=== PATIENT | female | born 1945 | race African-American/Black ===

== ENCOUNTER → 2017-02-13 | Outpatient (CLI) | payer MEDICARE, OTHER ==
[~2017-02-13] MED LIST: IOHEXOL-300 100 ML BOTTLE ONE; LEVO75TA7 PO; NITR0.4T SL; SODIUM CHLORIDE 0.9% 10ML VIAL ONE
== END | disposition home or self-care (01) ==
LOC: CT 08:44
PROVIDERS: ATTEND Internal Medicine Nephrology
DX: R91.8 Other nonspecific abnormal finding of lung field (principal); M47.814 Spondylosis without myelopathy or radiculopathy, thoracic region
CPT/HCPCS: 71260; A4216; Q9967

== ENCOUNTER 2017-05-19 21:56 | Emergency (ER) | payer MEDICARE, OTHER ==
[~2017-05-19] VITALS: Ht 165.1 cm; Wt 90.0 kg
[~2017-05-19 21:56] MED LIST changes: -IOHEXOL-300 100 ML BOTTLE ONE; -SODIUM CHLORIDE 0.9% 10ML VIAL ONE
[2017-05-19 23:44] LABS: BASOPHILS % 0.2 % (0.0-2.0); EOSINOPHILS % 1.6 % (0.0-5.0); HEMATOCRIT. 32.2 % (36.0-48.0); HEMOGLOBIN. 10.9 g/dL (12.0-16.0); LYMPHOCYTES % 18.1 % (20.0-50.0); MEAN CORPUSCULAR HEMOGLOBIN 31.7 pg (28.0-32.0); MEAN CORPUSCULAR VOLUME 93.3 fL (81.0-99.0); MEAN PLATELET VOLUME 8.5 fl (7.4-10.4); MONOCYTES % 5.9 % (2.0-8.0); NEUTROPHILS % 74.2 % (40.0-76.0); PLATELET 157 x1000/uL (130-400); RED BLOOD CELL COUNT 3.45 mill/uL (4.2-5.4)
[2017-05-19 23:52] LABS: CHLORIDE 106 mEq/L (98-107)
[2017-05-20] LABS: CARBON DIOXIDE 28 mEq/L (21-32); ETHANOL BLOOD < 10 mg/dL
[2017-05-20 00:33] LABS: CLARITY URINE TURBID (CLEAR); COLOR URINE YELLOW (YELLOW); GLUCOSE URINE NEGATIVE (NEGATIVE); KETONES URINE NEGATIVE (NEGATIVE); LEUKOCYTE ESTERASE URINE 3+ (NEGATIVE); NITRITE URINE NEGATIVE (NEGATIVE); OCCULT BLOOD URINE 2+ (NEGATIVE); PH URINE 6.5 (4.5-8.0); PROTEIN URINE 1+ (NEGATIVE); SPECIFIC GRAVITY URINE 1.009 (1.005-1.030); UROBILINOGEN URINE 0.2 E.U./dL (0.2-1.0)
[2017-05-20 01:45] LABS: *AMPHETAMINES SCREEN URINE NEGATIVE (NEGATIVE); *BARBITURATES SCREEN URINE NEGATIVE (NEGATIVE); *BENZODIAZEPINES SCREEN URINE PRESUMTIVE POSITIVE (NEGATIVE); *COCAINE SCREEN URINE NEGATIVE (NEGATIVE); CANNABINOID URINE SCREEN NEGATIVE (NEGATIVE); METHADONE URINE SCREEN NEGATIVE (NEGATIVE); OPIATES URINE SCREEN NEGATIVE (NEGATIVE); PHENCYCLIDINE URINE SCREEN NEGATIVE (NEGATIVE)
[2017-05-20] MEDS ORDERED: DIAZEPAM 5 MG TABLET PO ONE (01:45)
[2017-05-20] MEDS ORDERED: CEPHALEXIN 500MG CAPSULE PO ONE (01:45)
[2017-05-20 02:47] VITALS: BP 125/63
== END 2017-05-20 02:49 | disposition home or self-care (01) ==
LOC: ER 22:25
DX: N39.0 Urinary tract infection, site not specified (principal); E11.9 Type 2 diabetes mellitus without complications; I25.2 Old myocardial infarction; Z98.890 Other specified postprocedural states
CPT/HCPCS: 36415; 80053; 80305; 80307; 80329; 81001; 82962; 85025; 87077; 87086; 87186; 93005; 99285; G0482

== ENCOUNTER 2017-05-23 15:50 | Inpatient (IN) | payer MEDICARE, OTHER ==
[~2017-05-23] VITALS: Ht 167.6 cm; Wt 74.4 kg
[2017-05-23 17:28] LABS: BASOPHILS % 0.7 % (0.0-2.0); EOSINOPHILS % 2.8 % (0.0-5.0); HEMATOCRIT. 31.3 % (36.0-48.0); HEMOGLOBIN. 10.6 g/dL (12.0-16.0); LYMPHOCYTES % 21.4 % (20.0-50.0); MEAN CORPUSCULAR HEMOGLOBIN 31.3 pg (28.0-32.0); MEAN CORPUSCULAR VOLUME 92.9 fL (81.0-99.0); MEAN PLATELET VOLUME 8.9 fl (7.4-10.4); MONOCYTES % 6.4 % (2.0-8.0); NEUTROPHILS % 68.7 % (40.0-76.0); PLATELET 178 x1000/uL (130-400); RED BLOOD CELL COUNT 3.37 mill/uL (4.2-5.4)
[2017-05-23 17:31] LABS: INR 1.1
[2017-05-23 17:33] LABS: CARBON DIOXIDE 27 mEq/L (21-32); CHLORIDE 107 mEq/L (98-107)
[2017-05-23 22:05] VITALS: BP 117/63
[2017-05-23 23:00] VITALS: BP 117/63
[2017-05-23] MEDS ORDERED: NITROGLYCERIN 0.4MG TABLET SL SL PRN ×2 (23:30→23:45)
[2017-05-23] MEDS ORDERED: LORAZEPAM 0.5MG TABLET PO PRN (23:45)
[2017-05-23] MEDS ORDERED: ACETAMINOPHEN 325MG TABLET PO PRN (23:45)
[2017-05-24 04:00] VITALS: BP 118/60
[2017-05-24] MEDS: LEVOTHYROXINE SODIUM 75MCG TABLET PO SCH (06:13)
[2017-05-24 06:27] LABS: BASOPHILS % 0.6 % (0.0-2.0); EOSINOPHILS % 4.6 % (0.0-5.0); HEMATOCRIT. 33.1 % (36.0-48.0); LYMPHOCYTES % 24.7 % (20.0-50.0); MEAN CORPUSCULAR HEMOGLOBIN 31.3 pg (28.0-32.0); MEAN CORPUSCULAR VOLUME 93.9 fL (81.0-99.0); MEAN PLATELET VOLUME 8.5 fl (7.4-10.4); MONOCYTES % 6.4 % (2.0-8.0); NEUTROPHILS % 63.7 % (40.0-76.0); PLATELET 168 x1000/uL (130-400); RED BLOOD CELL COUNT 3.52 mill/uL (4.2-5.4); RED CELL DISTRIBUTION WIDTH 14.2 % (11.6-14.6)
[2017-05-24 07:18] LABS: CARBON DIOXIDE 28 mEq/L (21-32); CHLORIDE 109 mEq/L (98-107); TROPONIN I < 0.02 ng/mL (0.00-0.04)
[2017-05-24 08:00] VITALS: BP 129/70
[2017-05-24] MEDS ORDERED: NITROGLYCERIN 0.4MG TABLET SL SL PRN (08:15)
[2017-05-24] MEDS ORDERED: LEVOTHYROXINE SODIUM 75MCG TABLET PO SCH (09:00)
[2017-05-24] MEDS: ENOXAPARIN 40MG/0.4ML SYR SUBCUT SCH (09:05)
[2017-05-24 12:00] VITALS: BP 124/71
[2017-05-24] MEDS ORDERED: IOHEXOL-350 100 ML BOTTLE ONE (12:10)
[2017-05-24] MEDS ORDERED: SODIUM CHLORIDE 0.9% 10ML VIAL ONE (12:10)
[2017-05-24] MEDS: LORAZEPAM 2MG/ML CPJ IV PRN ×2 (12:24→21:51)
[2017-05-24 14:39] LABS: T4 FREE 0.84 ng/dL (0.76-1.46)
[2017-05-24 14:51] LABS: VITAMIN B12 SERUM 524 pg/mL (211-911)
[2017-05-24 14:56] LABS: FOLIC ACID (FOLATE) SERUM > 20.00 ng/mL (>5.38)
[2017-05-24 16:00] VITALS: BP 129/81
[2017-05-24 17:59] LABS: AMMONIA 29 uMol/L (<32)
[2017-05-24 20:00] VITALS: BP 131/86
[2017-05-25] VITALS: BP 103/61
[2017-05-25 04:00] VITALS: BP 114/67
[2017-05-25] MEDS: LEVOTHYROXINE SODIUM 75MCG TABLET PO SCH (06:33)
[2017-05-25 08:00] VITALS: BP 127/75
[2017-05-25] MEDS ORDERED: DOCUSATE SODIUM 100MG CAPSULE PO PRN (08:30)
[2017-05-25] MEDS ORDERED: IPRATROPIUM/ALBUTEROL 0.5-3(2.5)MG/3ML NEB INH PRN (08:30)
[2017-05-25] MEDS ORDERED: ACETAMINOPHEN 325MG TABLET PO PRN (08:30)
[2017-05-25] MEDS ORDERED: CLONIDINE 0.1MG TABLET PO PRN (08:30)
[2017-05-25] MEDS ORDERED: POTASSIUM CHLORIDE 10MEQ TABLET SR PO SCH (08:30)
[2017-05-25] MEDS ORDERED: ONDANSETRON HCL 4MG/2ML VIAL IV PRN (08:30)
[2017-05-25] MEDS ORDERED: LORAZEPAM 0.5MG TABLET PO PRN (09:00)
[2017-05-25] MEDS: OMEPRAZOLE 20MG CAPSULE EXTENDED RELEASE PO SCH (09:35)
[2017-05-25] MEDS: ENOXAPARIN 40MG/0.4ML SYR SUBCUT SCH (09:35)
[2017-05-25 12:00] VITALS: BP 117/65
[2017-05-25] MEDS ORDERED: DULO60CA44 PO (15:14)
[2017-05-25] MEDS ORDERED: CEPH250C2 PO (15:14)
[2017-05-25] MEDS ORDERED: OXYB15TA9 PO (15:16)
[2017-05-25] MEDS ORDERED: DOCU-138 PO (15:18)
[2017-05-25] MEDS ORDERED: LAMO25TA4 PO (15:18)
[2017-05-25 16:00] VITALS: BP 96/59
[2017-05-25] MEDS ORDERED: ENOXAPARIN 30MG/0.3ML SYR SUBCUT NR (16:15)
[2017-05-25] MEDS: LAMOTRIGINE 100MG TABLET PO SCH (16:37)
[2017-05-25 17:04] LABS: CLARITY URINE TURBID (CLEAR); COLOR URINE YELLOW (YELLOW); GLUCOSE URINE NEGATIVE (NEGATIVE); KETONES URINE NEGATIVE (NEGATIVE); LEUKOCYTE ESTERASE URINE 3+ (NEGATIVE); NITRITE URINE POSITIVE (NEGATIVE); OCCULT BLOOD URINE 2+ (NEGATIVE); PROTEIN URINE 2+ (NEGATIVE); SPECIFIC GRAVITY URINE 1.014 (1.005-1.030); UROBILINOGEN URINE 0.2 E.U./dL (0.2-1.0)
[2017-05-25 17:15] LABS: *AMPHETAMINES SCREEN URINE NEGATIVE (NEGATIVE); *BARBITURATES SCREEN URINE NEGATIVE (NEGATIVE); *BENZODIAZEPINES SCREEN URINE PRESUMTIVE POSITIVE (NEGATIVE); *COCAINE SCREEN URINE NEGATIVE (NEGATIVE); CANNABINOID URINE SCREEN NEGATIVE (NEGATIVE); METHADONE URINE SCREEN NEGATIVE (NEGATIVE); OPIATES URINE SCREEN NEGATIVE (NEGATIVE); PHENCYCLIDINE URINE SCREEN NEGATIVE (NEGATIVE)
[2017-05-25 20:00] VITALS: BP 108/53
[2017-05-25] MEDS ORDERED: OXYBUTYNIN CHLORIDE PO SCH (21:00)
[2017-05-25] MEDS: OXYBUTYNIN CHLORIDE 5MG TABLET PO SCH (21:33)
[2017-05-25] MEDS: ENOXAPARIN 80MG/0.8ML SYR SUBCUT SCH (21:34)
[2017-05-26] VITALS: BP 118/57
[2017-05-26 04:00] VITALS: BP 108/46
[2017-05-26 06:08] LABS: CARBON DIOXIDE 25 mEq/L (21-32); CHLORIDE 106 mEq/L (98-107)
[2017-05-26 06:24] LABS: BASOPHILS % 0.6 % (0.0-2.0); LYMPHOCYTES % 34.3 % (20.0-50.0); MEAN CORPUSCULAR HEMOGLOBIN 31.1 pg (28.0-32.0); MEAN CORPUSCULAR VOLUME 93.1 fL (81.0-99.0); MEAN PLATELET VOLUME 9.2 fl (7.4-10.4); MONOCYTES % 7.6 % (2.0-8.0); NEUTROPHILS % 55.5 % (40.0-76.0); PLATELET 172 x1000/uL (130-400); RED BLOOD CELL COUNT 3.86 mill/uL (4.2-5.4); RED CELL DISTRIBUTION WIDTH 14.1 % (11.6-14.6)
[2017-05-26] MEDS: OMEPRAZOLE 20MG CAPSULE EXTENDED RELEASE PO SCH (06:26)
[2017-05-26] MEDS: LEVOTHYROXINE SODIUM 75MCG TABLET PO SCH (06:26)
[2017-05-26] MEDS: ENOXAPARIN 80MG/0.8ML SYR SUBCUT SCH ×2 (08:19→20:11)
[2017-05-26] MEDS: LAMOTRIGINE 100MG TABLET PO SCH ×2 (08:19→17:53)
[2017-05-26] MEDS: DULOXETINE HCL 60MG DR CAPSULE PO SCH (08:20)
[2017-05-26 08:28] VITALS: BP 112/48
[2017-05-26] MEDS: TRAMADOL 50MG TABLET PO PRN ×2 (09:06→22:17)
[2017-05-26 12:13] VITALS: BP 113/64
[2017-05-26] MEDS: NITROFURANTOIN 100MG M/M CAPSULE PO SCH ×2 (14:56→20:11)
[2017-05-26] MEDS: LORAZEPAM 2MG/ML CPJ IV PRN ×2 (15:08→21:20)
[2017-05-26 16:03] VITALS: BP 134/63
[2017-05-26 20:00] VITALS: BP 108/49
[2017-05-26] MEDS: OXYBUTYNIN CHLORIDE 5MG TABLET PO SCH (20:11)
[2017-05-27] VITALS: BP 110/52
[2017-05-27] MEDS: LORAZEPAM 2MG/ML CPJ IV PRN ×3 (02:03→23:49)
[2017-05-27 04:00] VITALS: BP 127/82
[2017-05-27] MEDS: LEVOTHYROXINE SODIUM 75MCG TABLET PO SCH (05:53)
[2017-05-27 06:44] LABS: CARBON DIOXIDE 28 mEq/L (21-32); CHLORIDE 103 mEq/L (98-107)
[2017-05-27 06:55] LABS: BASOPHILS % 0.5 % (0.0-2.0); EOSINOPHILS % 2.1 % (0.0-5.0); HEMATOCRIT. 35.5 % (36.0-48.0); HEMOGLOBIN. 11.7 g/dL (12.0-16.0); LYMPHOCYTES % 27.2 % (20.0-50.0); MEAN CORPUSCULAR HEMOGLOBIN 30.8 pg (28.0-32.0); MEAN CORPUSCULAR VOLUME 93.2 fL (81.0-99.0); MEAN PLATELET VOLUME 8.6 fl (7.4-10.4); MONOCYTES % 6.6 % (2.0-8.0); NEUTROPHILS % 63.6 % (40.0-76.0); PLATELET 200 x1000/uL (130-400); RED BLOOD CELL COUNT 3.81 mill/uL (4.2-5.4)
[2017-05-27 08:00] VITALS: BP 121/66
[2017-05-27] MEDS: LAMOTRIGINE 100MG TABLET PO SCH ×2 (08:24→18:47)
[2017-05-27] MEDS: FAMOTIDINE 20MG TABLET PO SCH ×2 (08:24→20:43)
[2017-05-27] MEDS: NITROFURANTOIN 100MG M/M CAPSULE PO SCH ×2 (08:24→20:43)
[2017-05-27] MEDS: ENOXAPARIN 80MG/0.8ML SYR SUBCUT SCH (08:25)
[2017-05-27] MEDS: DULOXETINE HCL 60MG DR CAPSULE PO SCH (08:25)
[2017-05-27 11:35] VITALS: BP 126/61
[2017-05-27 16:11] VITALS: BP 134/70
[2017-05-27] MEDS ORDERED: APIXABAN 5 MG TABLET PO SCH (17:00)
[2017-05-27 20:00] VITALS: BP 102/58
[2017-05-27] MEDS: OXYBUTYNIN CHLORIDE 5MG TABLET PO SCH (20:43)
[2017-05-27] MEDS ORDERED: HALOPERIDOL LACTATE 5MG/ML VIAL IM NR (23:00)
[2017-05-27] MEDS: TRAMADOL 50MG TABLET PO PRN (23:49)
[2017-05-28] VITALS: BP 111/73
[2017-05-28 04:00] VITALS: BP 107/58
[2017-05-28] MEDS: LEVOTHYROXINE SODIUM 75MCG TABLET PO SCH (06:37)
[2017-05-28 07:13] LABS: HEMATOCRIT. 35.7 % (36.0-48.0); HEMOGLOBIN. 12.1 g/dL (12.0-16.0); MEAN CORPUSCULAR HEMOGLOBIN 31.9 pg (28.0-32.0); MEAN CORPUSCULAR VOLUME 94.3 fL (81.0-99.0); MEAN PLATELET VOLUME 8.7 fl (7.4-10.4); PLATELET 219 x1000/uL (130-400); RED BLOOD CELL COUNT 3.78 mill/uL (4.2-5.4); RED CELL DISTRIBUTION WIDTH 14.4 % (11.6-14.6)
[2017-05-28 07:34] LABS: CARBON DIOXIDE 30 mEq/L (21-32); CHLORIDE 105 mEq/L (98-107)
[2017-05-28 08:00] VITALS: BP 108/63
[2017-05-28] MEDS ORDERED: ENOXAPARIN 60MG/0.6ML SYR SUBCUT SCH (09:00)
[2017-05-28] MEDS ORDERED: ENOXAPARIN 80MG/0.8ML SYR SUBCUT SCH (09:00)
[2017-05-28] MEDS: LAMOTRIGINE 100MG TABLET PO SCH ×2 (09:20→17:40)
[2017-05-28] MEDS: FAMOTIDINE 20MG TABLET PO SCH ×2 (09:20→21:33)
[2017-05-28] MEDS: NITROFURANTOIN 100MG M/M CAPSULE PO SCH ×2 (09:20→21:33)
[2017-05-28] MEDS: DULOXETINE HCL 60MG DR CAPSULE PO SCH (09:20)
[2017-05-28 10:47] LABS: PLATELET ESTIMATE NORMAL
[2017-05-28] MEDS ORDERED: HALOPERIDOL 0.5MG TABLET PO PRN (12:30)
[2017-05-28 13:51] VITALS: BP 113/58
[2017-05-28 16:00] VITALS: BP 110/62
[2017-05-28] MEDS ORDERED: HALOPERIDOL LACTATE 5MG/ML VIAL IM PRN (18:15)
[2017-05-28 20:00] VITALS: BP 138/86
[2017-05-28] MEDS: OXYBUTYNIN CHLORIDE 5MG TABLET PO SCH (21:33)
[2017-05-28] MEDS: DEXT 5%/0.45% NACL 1000ML 1,000 ML IV SCH (21:56)
[2017-05-29] VITALS: BP 131/75
[2017-05-29 04:00] VITALS: BP 113/71
[2017-05-29] MEDS: LEVOTHYROXINE SODIUM 75MCG TABLET PO SCH (06:00)
[2017-05-29 06:28] LABS: BASOPHILS % 0.7 % (0.0-2.0); EOSINOPHILS % 3.3 % (0.0-5.0); HEMATOCRIT. 39.2 % (36.0-48.0); HEMOGLOBIN. 12.6 g/dL (12.0-16.0); LYMPHOCYTES % 29.8 % (20.0-50.0); MEAN CORPUSCULAR HEMOGLOBIN 30.9 pg (28.0-32.0); MEAN CORPUSCULAR VOLUME 96.3 fL (81.0-99.0); MEAN PLATELET VOLUME 8.5 fl (7.4-10.4); MONOCYTES % 10.9 % (2.0-8.0); NEUTROPHILS % 55.3 % (40.0-76.0); PLATELET 204 x1000/uL (130-400); RED BLOOD CELL COUNT 4.08 mill/uL (4.2-5.4); RED CELL DISTRIBUTION WIDTH 14.4 % (11.6-14.6)
[2017-05-29 06:30] LABS: CARBON DIOXIDE 26 mEq/L (21-32); CHLORIDE 106 mEq/L (98-107)
[2017-05-29 08:00] VITALS: BP 124/80
[2017-05-29] MEDS: NITROFURANTOIN 100MG M/M CAPSULE PO SCH ×2 (08:52→20:27)
[2017-05-29] MEDS: LAMOTRIGINE 100MG TABLET PO SCH ×2 (08:54→20:26)
[2017-05-29] MEDS: DULOXETINE HCL 60MG DR CAPSULE PO SCH (08:54)
[2017-05-29 09:00] LABS: PARTIAL THROMBOPLASTIN TIME 28.5 sec (24.0-34.0); PROTHROMBIN TIME 10.7 sec
[2017-05-29] MEDS: FAMOTIDINE 20MG TABLET PO SCH ×2 (09:00→20:27)
[2017-05-29] MEDS: HALOPERIDOL LACTATE 5MG/ML VIAL IM PRN ×2 (09:59→20:50)
[2017-05-29 12:02] VITALS: BP 137/79
[2017-05-29] MEDS: DEXT 5%/0.45% NACL 1000ML 1,000 ML IV SCH (14:50)
[2017-05-29] MEDS: TRAMADOL 50MG TABLET PO PRN (15:17)
[2017-05-29 16:20] VITALS: BP 118/80
[2017-05-29 20:00] VITALS: BP 120/55
[2017-05-29] MEDS: OXYBUTYNIN CHLORIDE 5MG TABLET PO SCH (20:27)
[2017-05-30] VITALS: BP 113/74
[2017-05-30] MEDS: DEXT 5%/0.45% NACL 1000ML 1,000 ML IV SCH (02:28)
[2017-05-30 04:00] VITALS: BP 109/63
[2017-05-30] MEDS: LEVOTHYROXINE SODIUM 75MCG TABLET PO SCH (05:48)
[2017-05-30 05:53] LABS: CHLORIDE 107 mEq/L (98-107)
[2017-05-30 06:00] LABS: CARBON DIOXIDE 27 mEq/L (21-32)
[2017-05-30 06:09] LABS: BASOPHILS % 0.4 % (0.0-2.0); EOSINOPHILS % 2.4 % (0.0-5.0); HEMATOCRIT. 32.5 % (36.0-48.0); HEMOGLOBIN. 10.7 g/dL (12.0-16.0); LYMPHOCYTES % 28.1 % (20.0-50.0); MEAN CORPUSCULAR HEMOGLOBIN 30.9 pg (28.0-32.0); MEAN CORPUSCULAR VOLUME 93.9 fL (81.0-99.0); MEAN PLATELET VOLUME 8.4 fl (7.4-10.4); NEUTROPHILS % 62.1 % (40.0-76.0); PLATELET 223 x1000/uL (130-400); RED BLOOD CELL COUNT 3.46 mill/uL (4.2-5.4); RED CELL DISTRIBUTION WIDTH 14.1 % (11.6-14.6)
[2017-05-30 08:00] VITALS: BP 105/65
[2017-05-30] MEDS: LEVOFLOXACIN 500MG TABLET PO SCH ×2 (10:53→11:00)
[2017-05-30] MEDS: FAMOTIDINE 20MG TABLET PO SCH (10:53)
[2017-05-30] MEDS: LAMOTRIGINE 100MG TABLET PO SCH (10:53)
[2017-05-30] MEDS: DULOXETINE HCL 60MG DR CAPSULE PO SCH (10:53)
[2017-05-30 12:00] VITALS: BP 98/46
[2017-05-30 13:36] VITALS: BP 100/46
[2017-05-30] MEDS ORDERED: HALOPERIDOL 0.5MG TABLET PO PRN (14:00)
[2017-05-30] MEDS ORDERED: APIXABAN 5 MG TABLET PO SCH (17:00)
== END 2017-05-30 15:45 | DRG 638 ==
LOC: ER 16:11 → 5WST 18:34 → ENRESERV 19:58 → 5WST 05-24 00:20
PROVIDERS: ADMIT Specialist; ATTEND Specialist
PROC: 02HV33Z Insertion of Infusion Device into Superior Vena Cava, Percutaneous Approach (ICD-10-PCS; principal; 2017-05-29)
DX: E11.649 Type 2 diabetes mellitus with hypoglycemia without coma (principal); S82.201A Unspecified fracture of shaft of right tibia, initial encounter for closed fracture; G92 Toxic encephalopathy; Z93.0 Tracheostomy status; F03.90 Unspecified dementia, unspecified severity, without behavioral disturbance, psychotic disturbance, mood disturbance, and anxiety; I69.354 Hemiplegia and hemiparesis following cerebral infarction affecting left non-dominant side; N39.0 Urinary tract infection, site not specified; I82.511 Chronic embolism and thrombosis of right femoral vein; W19.XXXA Unspecified fall, initial encounter; W18.39XA Other fall on same level, initial encounter; D64.9 Anemia, unspecified; I10 Essential (primary) hypertension; M48.02 Spinal stenosis, cervical region; E03.9 Hypothyroidism, unspecified; M48.06 Spinal stenosis, lumbar region; Z86.79 Personal history of other diseases of the circulatory system; Z91.19 Patient's noncompliance with other medical treatment and regimen; Y93.89 Activity, other specified; Y92.89 Other specified places as the place of occurrence of the external cause; Y99.8 Other external cause status
CPT/HCPCS: 36415; 36569; 70450; 70496; 70551; 73560; 73590; 76937; 80048; 80053; 80305; 81001; 82140; 82607; 82746; 82962; 83036; 83735; 84439; 84443; 84481; 84484; 85025; 85610; 85730; 87077; 87086; 87186; 92523; 93005; 93306; 93970; 97162; 97532; 99285; A4216; A6261; C1725; J1630; J1650; J2060; J3490; J7050; Q9967

== ENCOUNTER 2017-06-05 22:42 | Inpatient (IN) | payer MEDICARE, MEDICAID ==
[~2017-06-05] VITALS: Ht 167.6 cm; Wt 67.1 kg
[~2017-06-05 22:42] MED LIST changes: +DOCU-138 PO; +DULO60CA44 PO; +LAMO25TA4 PO; +OXYB15TA9 PO
[2017-06-05] MEDS ORDERED: SODIUM CHLORIDE 0.9% 1,000 ML IV ONE (23:31)
[2017-06-05] MEDS ORDERED: ACETAMINOPHEN 325MG TABLET PO STA (23:31)
[2017-06-05] MEDS ORDERED: PIPERACILLIN/TAZ 3.375G PREMIX 50 ML IV ONE (23:45)
[2017-06-05] MEDS ORDERED: VANCOMYCIN 1 G PREMIX 200 ML IV ONE (23:45)
[2017-06-06] VITALS (61 sets, daily range): BP systolic 59–154; BP diastolic 25–103
[2017-06-06 00:07] LABS: HEMATOCRIT. 42.6 % (36.0-48.0); MEAN CORPUSCULAR HEMOGLOBIN 30.7 pg (28.0-32.0); MEAN CORPUSCULAR VOLUME 93.7 fL (81.0-99.0); MEAN PLATELET VOLUME 9.1 fl (7.4-10.4); PLATELET 274 x1000/uL (130-400); RED BLOOD CELL COUNT 4.55 mill/uL (4.2-5.4); RED CELL DISTRIBUTION WIDTH 14.9 % (11.6-14.6)
[2017-06-06 00:13] LABS: CHLORIDE 114 mEq/L (98-107)
[2017-06-06 00:14] LABS: INR 1.3; PROTHROMBIN TIME 13.5 sec (9.4-11.6)
[2017-06-06 00:16] LABS: BG BASE EXCESS 1.6 mmol/L (-2.0-2.0); BG CARBOXYHEMOGLOBIN 0.1 % (0.5-1.5); BG DEOXYHEMOGLOBIN 6.1 % (0.0-5.0); BG FRACTION INSPIRED OXYGEN 40; BG HCO3 ACT 24.7 mmol/L (22.0-26.0); BG METHEMOGLOBIN 0.1 % (0.0-1.5); BG OXYGEN SATURATION 93.9 % (92.0-98.5); BG OXYHEMOGLOBIN 93.7 % (94.0-97.0); BG PCO2 34.2 mmHg (35.0-45.0); BG PH 7.477 (7.350-7.450); BG PO2 70.7 mmHg (75.0-100.0); BG SAMPLE SITE LEFT RADIAL; BG TOTAL HEMOGLOBIN 12.6 g/dL (12.0-18.0); BG VENT MODE NASAL CANNULA
[2017-06-06 00:23] LABS: CARBON DIOXIDE 27 mEq/L (21-32)
[2017-06-06] MEDS ORDERED: ACETAMINOPHEN 650MG SUPP PR ONE (00:45)
[2017-06-06] MEDS ORDERED: DEXT 5%/0.45% NACL 1000ML 1,000 ML IV SCH (00:46)
[2017-06-06 00:49] LABS: CLARITY URINE CLOUDY (CLEAR); COLOR URINE DARK YELLOW (YELLOW); GLUCOSE URINE NEGATIVE (NEGATIVE); KETONES URINE NEGATIVE (NEGATIVE); LEUKOCYTE ESTERASE URINE TRACE (NEGATIVE); NITRITE URINE NEGATIVE (NEGATIVE); OCCULT BLOOD URINE 3+ (NEGATIVE); PROTEIN URINE 4+ (NEGATIVE); SPECIFIC GRAVITY URINE 1.027 (1.005-1.030)
[2017-06-06] MEDS ORDERED: IPRATROPIUM/ALBUTEROL 0.5-3(2.5)MG/3ML NEB INH PRN (01:00)
[2017-06-06 01:14] LABS: PLATELET ESTIMATE NORMAL
[2017-06-06] MEDS ORDERED: ONDANSETRON HCL 4MG/2ML VIAL IV PRN (03:17)
[2017-06-06] MEDS ORDERED: LEVOFLOXACIN 500MG PREMIX 100 ML IV SCH (05:00)
[2017-06-06] MEDS ORDERED: DEXTROSE 50% WATER 50ML SYRINGE IV PRN (05:30)
[2017-06-06] MEDS: INSULIN LISPRO 100 UNITS/ML SUBCUT SCH ×4 (05:52→23:30)
[2017-06-06] MEDS: BLOOD SUGAR DIAGNOSTIC STRIP TEST SCH ×4 (05:52→23:25)
[2017-06-06] MEDS ORDERED: METRONIDAZOLE 500MG/100ML PREMIX IV SCH (06:00)
[2017-06-06] MEDS ORDERED: METRONIDAZOLE 500 MG PREMIX 100 ML IV SCH (08:00)
[2017-06-06] MEDS: PANTOPRAZOLE SODIUM 40 MG/VIAL IV SCH (08:18)
[2017-06-06] MEDS: ENOXAPARIN 60MG/0.6ML SYR SUBCUT SCH ×2 (09:15→20:11)
[2017-06-06 09:51] LABS: BASOPHILS % 0.1 % (0.0-2.0); HEMATOCRIT. 47.4 % (36.0-48.0); HEMOGLOBIN. 15.4 g/dL (12.0-16.0); LYMPHOCYTES % 9.1 % (20.0-50.0); MEAN CORPUSCULAR VOLUME 95.2 fL (81.0-99.0); MEAN PLATELET VOLUME 9.4 fl (7.4-10.4); MONOCYTES % 10.8 % (2.0-8.0); PLATELET 198 x1000/uL (130-400); RED BLOOD CELL COUNT 4.98 mill/uL (4.2-5.4); RED CELL DISTRIBUTION WIDTH 14.9 % (11.6-14.6)
[2017-06-06 10:09] LABS: AMMONIA 13 uMol/L (<32)
[2017-06-06 10:10] LABS: CARBON DIOXIDE 27 mEq/L (21-32); CHLORIDE 116 mEq/L (98-107)
[2017-06-06] MEDS ORDERED: NOREPINEPHRINE 4 MG in DEXT 5% WATER 246 ML IV PRN (10:30)
[2017-06-06] MEDS ORDERED: PIPERACILLIN/TAZ 3.375G PREMIX 50 ML IV SCH (11:00)
[2017-06-06] MEDS: DEXTROSE 5% WATER 1,000 ML IV SCH ×2 (11:14→23:19)
[2017-06-06] MEDS ORDERED: ACETAMINOPHEN 650MG SUPP ONE (11:18)
[2017-06-06] MEDS ORDERED: ACETAMINOPHEN 650MG SUPP PR PRN ×2 (11:45→12:00)
[2017-06-06] MEDS: IPRATROPIUM/ALBUTEROL 0.5-3(2.5)MG/3ML NEB HHN SCH ×3 (11:46→20:04)
[2017-06-06] MEDS: ACETYLCYSTEINE 100MG/ML 10% VIAL 4ML INH SCH ×3 (12:00→20:04)
[2017-06-06 12:23] LABS: BG BASE EXCESS 0.4 mmol/L (-2.0-2.0); BG CARBOXYHEMOGLOBIN 0.3 % (0.5-1.5); BG DEOXYHEMOGLOBIN 10.2 % (0.0-5.0); BG FRACTION INSPIRED OXYGEN 50; BG HCO3 ACT 22.2 mmol/L (22.0-26.0); BG OXYGEN SATURATION 89.8 % (92.0-98.5); BG OXYHEMOGLOBIN 89.5 % (94.0-97.0); BG PCO2 28.2 mmHg (35.0-45.0); BG PH 7.513 (7.350-7.450); BG SAMPLE SITE RIGHT RADIAL; BG TIDAL VOLUME(mL) 500 mL; BG TOTAL HEMOGLOBIN 13.7 g/dL (12.0-18.0); BG VENT MODE VENT - A/C; BG VENT RATE 12 set
[2017-06-06] MEDS ORDERED: ETOMIDATE 2MG/ML 10ML VIAL IV ONE (12:30)
[2017-06-06] MEDS ORDERED: VANCOMYCIN 750 MG PREMIX 150 ML IV SCH (13:00)
[2017-06-06] MEDS: PIPERACILLIN/TAZ 3.375G PREMIX 50 ML IV SCH ×2 (14:26→23:25)
[2017-06-06 14:41] LABS: BG BASE EXCESS -1.2 mmol/L (-2.0-2.0); BG CARBOXYHEMOGLOBIN 0.1 % (0.5-1.5); BG DEOXYHEMOGLOBIN 3.9 % (0.0-5.0); BG FRACTION INSPIRED OXYGEN 100; BG METHEMOGLOBIN 0.2 % (0.0-1.5); BG OXYGEN SATURATION 96.1 % (92.0-98.5); BG OXYHEMOGLOBIN 95.8 % (94.0-97.0); BG PCO2 32.1 mmHg (35.0-45.0); BG PH 7.453 (7.350-7.450); BG SAMPLE SITE RIGHT RADIAL; BG TIDAL VOLUME(mL) 450 mL; BG TOTAL HEMOGLOBIN 13.4 g/dL (12.0-18.0); BG VENT MODE VENT - A/C; BG VENT RATE 10 set
[2017-06-06] MEDS: VANCOMYCIN 750 MG PREMIX 150 ML IV SCH (15:04)
[2017-06-06] MEDS: ACETAMINOPHEN 325MG TABLET PO PRN (20:12)
[2017-06-07] VITALS (91 sets, daily range): BP systolic 69–147; BP diastolic 30–89
[2017-06-07] MEDS: IPRATROPIUM/ALBUTEROL 0.5-3(2.5)MG/3ML NEB HHN SCH ×6 (00:27→20:51)
[2017-06-07] MEDS: ACETYLCYSTEINE 100MG/ML 10% VIAL 4ML INH SCH ×5 (00:27→16:20)
[2017-06-07] MEDS: VANCOMYCIN 750 MG PREMIX 150 ML IV SCH (02:36)
[2017-06-07] MEDS: NOREPINEPHRINE 8 MG in DEXT 5% WATER 242 ML IV PRN (05:13)
[2017-06-07] MEDS: PIPERACILLIN/TAZ 3.375G PREMIX 50 ML IV SCH ×4 (05:13→23:20)
[2017-06-07] MEDS: INSULIN LISPRO 100 UNITS/ML SUBCUT SCH ×4 (05:23→23:24)
[2017-06-07] MEDS: BLOOD SUGAR DIAGNOSTIC STRIP TEST SCH ×4 (05:24→23:24)
[2017-06-07 05:26] LABS: HEMATOCRIT. 34.1 % (36.0-48.0); HEMOGLOBIN. 11.2 g/dL (12.0-16.0); MEAN CORPUSCULAR HEMOGLOBIN 30.9 pg (28.0-32.0); MEAN CORPUSCULAR VOLUME 94.1 fL (81.0-99.0); MEAN PLATELET VOLUME 9.5 fl (7.4-10.4); PLATELET 181 x1000/uL (130-400); RED BLOOD CELL COUNT 3.62 mill/uL (4.2-5.4); RED CELL DISTRIBUTION WIDTH 14.9 % (11.6-14.6)
[2017-06-07 06:43] LABS: AMMONIA 31 uMol/L (<32)
[2017-06-07 06:49] LABS: PHOSPHORUS 1.7 mg/dL (2.5-4.9)
[2017-06-07 08:58] LABS: BG BASE EXCESS -1.9 mmol/L (-2.0-2.0); BG CARBOXYHEMOGLOBIN 0.3 % (0.5-1.5); BG DEOXYHEMOGLOBIN 1.4 % (0.0-5.0); BG FRACTION INSPIRED OXYGEN 70; BG HCO3 ACT 22.1 mmol/L (22.0-26.0); BG METHEMOGLOBIN 0.2 % (0.0-1.5); BG OXYGEN SATURATION 98.6 % (92.0-98.5); BG OXYHEMOGLOBIN 98.1 % (94.0-97.0); BG PCO2 35.3 mmHg (35.0-45.0); BG PH 7.415 (7.350-7.450); BG PO2 137.2 mmHg (75.0-100.0); BG SAMPLE SITE RIGHT BRACHIAL; BG TIDAL VOLUME(mL) 450 mL; BG TOTAL HEMOGLOBIN 12.3 g/dL (12.0-18.0); BG VENT MODE VENT - A/C; BG VENT RATE 10 set
[2017-06-07] MEDS ORDERED: POTASSIUM PHOS,M-BASIC-D-BASIC 20 MMOL in DEXT 5% WATER 243.3333 ML IV NR (09:00)
[2017-06-07] MEDS: ENOXAPARIN 60MG/0.6ML SYR SUBCUT SCH ×2 (09:26→20:23)
[2017-06-07] MEDS: PANTOPRAZOLE SODIUM 40 MG/VIAL IV SCH (09:26)
[2017-06-07] MEDS: DEXT 5%/0.45% NACL 1000ML 1,000 ML IV SCH ×2 (09:27→23:26)
[2017-06-07 10:57] LABS: PLATELET ESTIMATE NORMAL
[2017-06-07] MEDS ORDERED: LEVOFLOXACIN 250MG PREMIX 50 ML IV SCH (11:00)
[2017-06-07 15:13] LABS: BG BASE EXCESS -3.2 mmol/L (-2.0-2.0); BG CARBOXYHEMOGLOBIN 0.3 % (0.5-1.5); BG DEOXYHEMOGLOBIN 5.9 % (0.0-5.0); BG FRACTION INSPIRED OXYGEN 55; BG HCO3 ACT 20.6 mmol/L (22.0-26.0); BG METHEMOGLOBIN 0.2 % (0.0-1.5); BG OXYGEN SATURATION 94.1 % (92.0-98.5); BG OXYHEMOGLOBIN 93.6 % (94.0-97.0); BG PCO2 33.2 mmHg (35.0-45.0); BG PH 7.411 (7.350-7.450); BG PO2 71.2 mmHg (75.0-100.0); BG SAMPLE SITE RIGHT BRACHIAL; BG TIDAL VOLUME(mL) 450 mL; BG TOTAL HEMOGLOBIN 12.1 g/dL (12.0-18.0); BG VENT MODE VENT - A/C; BG VENT RATE 10 set
[2017-06-07] MEDS: ACETAMINOPHEN 325MG TABLET PO PRN (18:35)
[2017-06-07] MEDS: VANCOMYCIN 500 MG PREMIX 100 ML IV SCH (20:23)
[2017-06-08] VITALS (94 sets, daily range): BP systolic 67–147; BP diastolic 28–108
[2017-06-08] MEDS: ACETYLCYSTEINE 100MG/ML 10% VIAL 4ML INH SCH ×7 (00:31→20:41)
[2017-06-08] MEDS: IPRATROPIUM/ALBUTEROL 0.5-3(2.5)MG/3ML NEB HHN SCH ×7 (00:32→20:41)
[2017-06-08] MEDS: ACETAMINOPHEN 325MG TABLET PO PRN ×2 (04:32→11:05)
[2017-06-08 05:08] LABS: HEMATOCRIT. 32.4 % (36.0-48.0); HEMOGLOBIN. 10.7 g/dL (12.0-16.0); MEAN CORPUSCULAR HEMOGLOBIN 30.6 pg (28.0-32.0); MEAN PLATELET VOLUME 9.7 fl (7.4-10.4); PLATELET 163 x1000/uL (130-400); RED BLOOD CELL COUNT 3.49 mill/uL (4.2-5.4); RED CELL DISTRIBUTION WIDTH 14.8 % (11.6-14.6)
[2017-06-08] MEDS: PIPERACILLIN/TAZ 3.375G PREMIX 50 ML IV SCH ×2 (05:22→11:16)
[2017-06-08] MEDS: NOREPINEPHRINE 8 MG in DEXT 5% WATER 242 ML IV PRN (05:22)
[2017-06-08] MEDS: BLOOD SUGAR DIAGNOSTIC STRIP TEST SCH ×3 (05:34→17:25)
[2017-06-08] MEDS: INSULIN LISPRO 100 UNITS/ML SUBCUT SCH ×3 (05:34→17:25)
[2017-06-08 06:08] LABS: PHOSPHORUS 2.4 mg/dL (2.5-4.9)
[2017-06-08] MEDS: VANCOMYCIN 500 MG PREMIX 100 ML IV SCH (08:14)
[2017-06-08] MEDS: PANTOPRAZOLE SODIUM 40 MG/VIAL IV SCH (08:14)
[2017-06-08] MEDS: ENOXAPARIN 60MG/0.6ML SYR SUBCUT SCH ×2 (08:15→21:20)
[2017-06-08] MEDS ORDERED: POTASSIUM PHOS,M-BASIC-D-BASIC 15 MMOL in DEXT 5% WATER 245 ML IV SCH (09:00)
[2017-06-08] MEDS ORDERED: KCL 20MEQ/100ML PREMIX 100 ML IV SCH (09:00)
[2017-06-08 09:08] LABS: PLATELET ESTIMATE NORMAL
[2017-06-08] MEDS: DEXT 5%/0.45% NACL 1000ML 1,000 ML IV SCH (10:57)
[2017-06-08] MEDS ORDERED: IOHEXOL-350 100 ML BOTTLE ONE (13:06)
[2017-06-08] MEDS ORDERED: SODIUM CHLORIDE 0.9% 10ML VIAL ONE (13:06)
[2017-06-08 15:32] LABS: BG BASE EXCESS -3.9 mmol/L (-2.0-2.0); BG CARBOXYHEMOGLOBIN 0.3 % (0.5-1.5); BG DEOXYHEMOGLOBIN 6.1 % (0.0-5.0); BG FRACTION INSPIRED OXYGEN 60; BG METHEMOGLOBIN 0.2 % (0.0-1.5); BG OXYGEN SATURATION 93.9 % (92.0-98.5); BG OXYHEMOGLOBIN 93.4 % (94.0-97.0); BG PCO2 27.6 mmHg (35.0-45.0); BG PH 7.456 (7.350-7.450); BG PO2 70.4 mmHg (75.0-100.0); BG SAMPLE SITE RIGHT RADIAL; BG TIDAL VOLUME(mL) 450 mL; BG TOTAL HEMOGLOBIN 10.1 g/dL (12.0-18.0); BG VENT MODE VENT - A/C; BG VENT RATE 10 set
[2017-06-08] MEDS: CEFEPIME 1,000 MG in DEXTROSE 5% WATER 50 ML IV SCH (15:53)
[2017-06-08] MEDS: METRONIDAZOLE 500MG TABLET PO SCH (21:19)
[2017-06-08] MEDS: PROPOFOL 10MG/ML 100ML 100 ML IV PRN (22:12)
[2017-06-09] VITALS (66 sets, daily range): BP systolic 70–124; BP diastolic 30–79
[2017-06-09] MEDS: IPRATROPIUM/ALBUTEROL 0.5-3(2.5)MG/3ML NEB HHN SCH ×5 (00:17→16:19)
[2017-06-09] MEDS: ACETYLCYSTEINE 100MG/ML 10% VIAL 4ML INH SCH ×5 (00:17→16:19)
[2017-06-09] MEDS: CEFEPIME 1,000 MG in DEXTROSE 5% WATER 50 ML IV SCH (03:17)
[2017-06-09] MEDS: INSULIN LISPRO 100 UNITS/ML SUBCUT SCH ×4 (06:00→17:13)
[2017-06-09 06:12] LABS: CARBON DIOXIDE 24 mEq/L (21-32); CHLORIDE 104 mEq/L (98-107); PHOSPHORUS 2.2 mg/dL (2.5-4.9)
[2017-06-09 06:23] LABS: CLARITY URINE CLOUDY (CLEAR); COLOR URINE YELLOW (YELLOW); GLUCOSE URINE NEGATIVE (NEGATIVE); KETONES URINE NEGATIVE (NEGATIVE); LEUKOCYTE ESTERASE URINE TRACE (NEGATIVE); NITRITE URINE NEGATIVE (NEGATIVE); OCCULT BLOOD URINE 1+ (NEGATIVE); PH URINE 5.5 (4.5-8.0); PROTEIN URINE TRACE (NEGATIVE); SPECIFIC GRAVITY URINE 1.027 (1.005-1.030); UROBILINOGEN URINE 0.2 E.U./dL (0.2-1.0)
[2017-06-09] MEDS: METRONIDAZOLE 500MG TABLET PO SCH (06:24)
[2017-06-09] MEDS: BLOOD SUGAR DIAGNOSTIC STRIP TEST SCH ×5 (06:24→23:38)
[2017-06-09 07:15] LABS: HEMATOCRIT. 27.3 % (36.0-48.0); MEAN CORPUSCULAR HEMOGLOBIN 30.6 pg (28.0-32.0); MEAN CORPUSCULAR VOLUME 92.8 fL (81.0-99.0); MEAN PLATELET VOLUME 9.9 fl (7.4-10.4); PLATELET 136 x1000/uL (130-400); RED BLOOD CELL COUNT 2.95 mill/uL (4.2-5.4); RED CELL DISTRIBUTION WIDTH 14.7 % (11.6-14.6)
[2017-06-09 07:44] LABS: BG CARBOXYHEMOGLOBIN 0.2 % (0.5-1.5); BG DEOXYHEMOGLOBIN 7.4 % (0.0-5.0); BG FRACTION INSPIRED OXYGEN 60; BG HCO3 ACT 20.9 mmol/L (22.0-26.0); BG METHEMOGLOBIN 0.3 % (0.0-1.5); BG OXYGEN SATURATION 92.6 % (92.0-98.5); BG OXYHEMOGLOBIN 92.1 % (94.0-97.0); BG PH 7.475 (7.350-7.450); BG PO2 64.1 mmHg (75.0-100.0); BG SAMPLE SITE RIGHT RADIAL; BG TIDAL VOLUME(mL) 450 mL; BG VENT MODE VENT - A/C; BG VENT RATE 10 set
[2017-06-09] MEDS: PANTOPRAZOLE SODIUM 40 MG/VIAL IV SCH (08:19)
[2017-06-09] MEDS: ENOXAPARIN 60MG/0.6ML SYR SUBCUT SCH ×2 (08:20→20:28)
[2017-06-09] MEDS ORDERED: VANCOMYCIN 1 G PREMIX 200 ML IV SCH (09:00)
[2017-06-09 10:07] LABS: PLATELET ESTIMATE NORMAL
[2017-06-09] MEDS ORDERED: POTASSIUM CHLORIDE INJ 40 MEQ in DEXT 5% WATER 500 ML IV NR (12:00)
[2017-06-09] MEDS: METOCLOPRAMIDE HCL 10MG/2ML VIAL IV SCH ×3 (12:07→23:38)
[2017-06-09] MEDS: DEXT 5%/0.45% NACL 1000ML 1,000 ML IV SCH ×2 (13:34)
[2017-06-09] MEDS ORDERED: METRONIDAZOLE 500 MG PREMIX 100 ML IV SCH (14:00)
[2017-06-09] MEDS: MEROPENEM 1,000 MG in SODIUM CHLORIDE 0.9% 100 ML IV SCH (16:18)
[2017-06-09] MEDS: VANCOMYCIN HCL 1000 MG/20 ML ORAL PO SCH ×2 (17:11→23:38)
[2017-06-09] MEDS: PROPOFOL 10MG/ML 100ML 100 ML IV PRN (20:29)
[2017-06-09] MEDS ORDERED: PROPOFOL 10MG/ML 100ML 100 ML IV PRN (22:00)
[2017-06-10] VITALS (69 sets, daily range): BP systolic 89–137; BP diastolic 44–90
[2017-06-10] MEDS: INSULIN LISPRO 100 UNITS/ML SUBCUT SCH ×5 (00:11→23:43)
[2017-06-10] MEDS: MEROPENEM 1,000 MG in SODIUM CHLORIDE 0.9% 100 ML IV SCH ×4 (00:12→23:41)
[2017-06-10] MEDS: ACETYLCYSTEINE 100MG/ML 10% VIAL 4ML INH SCH ×7 (00:35→20:14)
[2017-06-10] MEDS: IPRATROPIUM/ALBUTEROL 0.5-3(2.5)MG/3ML NEB HHN SCH ×5 (00:39→20:13)
[2017-06-10 05:12] LABS: HEMATOCRIT. 26.6 % (36.0-48.0); HEMOGLOBIN. 8.8 g/dL (12.0-16.0); MEAN CORPUSCULAR HEMOGLOBIN 30.5 pg (28.0-32.0); MEAN CORPUSCULAR VOLUME 92.6 fL (81.0-99.0); MEAN PLATELET VOLUME 10.5 fl (7.4-10.4); PLATELET 143 x1000/uL (130-400); RED BLOOD CELL COUNT 2.87 mill/uL (4.2-5.4); RED CELL DISTRIBUTION WIDTH 14.9 % (11.6-14.6)
[2017-06-10 05:39] LABS: CARBON DIOXIDE 24 mEq/L (21-32); CHLORIDE 109 mEq/L (98-107); PHOSPHORUS 1.5 mg/dL (2.5-4.9)
[2017-06-10] MEDS: BLOOD SUGAR DIAGNOSTIC STRIP TEST SCH ×4 (06:11→23:19)
[2017-06-10] MEDS: DEXT 5%/0.45% NACL 1000ML 1,000 ML IV SCH ×2 (06:17→15:25)
[2017-06-10] MEDS: VANCOMYCIN HCL 1000 MG/20 ML ORAL PO SCH ×4 (06:17→23:42)
[2017-06-10] MEDS: METOCLOPRAMIDE HCL 10MG/2ML VIAL IV SCH ×4 (06:17→23:41)
[2017-06-10] MEDS ORDERED: POTASSIUM PHOS,M-BASIC-D-BASIC 20 MMOL in DEXT 5% WATER 243.3333 ML IV SCH (08:00)
[2017-06-10] MEDS: PANTOPRAZOLE SODIUM 40 MG/VIAL IV SCH (08:40)
[2017-06-10] MEDS: ENOXAPARIN 60MG/0.6ML SYR SUBCUT SCH ×2 (08:41→20:39)
[2017-06-10] MEDS ORDERED: LACTULOSE 20G/30ML UDC PO SCH (10:00)
[2017-06-10 10:31] LABS: PLATELET ESTIMATE NORMAL
[2017-06-10 11:06] LABS: BG CARBOXYHEMOGLOBIN 0.3 % (0.5-1.5); BG DEOXYHEMOGLOBIN 5.6 % (0.0-5.0); BG FRACTION INSPIRED OXYGEN 35; BG HCO3 ACT 19.9 mmol/L (22.0-26.0); BG METHEMOGLOBIN 0.2 % (0.0-1.5); BG OXYGEN SATURATION 94.4 % (92.0-98.5); BG OXYHEMOGLOBIN 93.9 % (94.0-97.0); BG PCO2 28.3 mmHg (35.0-45.0); BG PH 7.465 (7.350-7.450); BG PO2 72.2 mmHg (75.0-100.0); BG PRESSURE SUPPORT 8; BG SAMPLE SITE RIGHT RADIAL; BG TIDAL VOLUME(mL) 450 mL; BG TOTAL HEMOGLOBIN 9.7 g/dL (12.0-18.0); BG VENT MODE VENT - SIMV; BG VENT RATE 10 set
[2017-06-10] MEDS ORDERED: BISACODYL 10MG SUPP PR PRN (13:00)
[2017-06-10] MEDS: DOCUSATE SODIUM 100MG CAPSULE PO PRN ×4 (13:08→16:29)
[2017-06-10] MEDS: DOCUSATE SODIUM SUGAR FREE 100MG/10ML UDC NG SCH ×2 (13:10→16:30)
[2017-06-10] MEDS ORDERED: PROPOFOL 10MG/ML 100ML 100 ML IV PRN (15:04)
[2017-06-11] VITALS (54 sets, daily range): BP systolic 93–154; BP diastolic 35–115
[2017-06-11] MEDS: IPRATROPIUM/ALBUTEROL 0.5-3(2.5)MG/3ML NEB HHN SCH ×6 (00:39→20:22)
[2017-06-11] MEDS: BLOOD SUGAR DIAGNOSTIC STRIP TEST SCH ×4 (05:21→23:35)
[2017-06-11] MEDS: VANCOMYCIN HCL 1000 MG/20 ML ORAL PO SCH ×2 (05:28→12:24)
[2017-06-11] MEDS: DEXT 5%/0.45% NACL 1000ML 1,000 ML IV SCH (05:28)
[2017-06-11] MEDS: METOCLOPRAMIDE HCL 10MG/2ML VIAL IV SCH ×3 (05:28→17:12)
[2017-06-11] MEDS: INSULIN LISPRO 100 UNITS/ML SUBCUT SCH ×3 (05:29→17:14)
[2017-06-11 05:37] LABS: HEMATOCRIT. 27.7 % (36.0-48.0); MEAN CORPUSCULAR HEMOGLOBIN 30.3 pg (28.0-32.0); MEAN CORPUSCULAR VOLUME 93.2 fL (81.0-99.0); MEAN PLATELET VOLUME 10.2 fl (7.4-10.4); PLATELET 155 x1000/uL (130-400); RED BLOOD CELL COUNT 2.97 mill/uL (4.2-5.4)
[2017-06-11 06:20] LABS: CARBON DIOXIDE 25 mEq/L (21-32); CHLORIDE 107 mEq/L (98-107); PHOSPHORUS 2.1 mg/dL (2.5-4.9)
[2017-06-11] MEDS ORDERED: POTASSIUM PHOS,M-BASIC-D-BASIC 15 MMOL in DEXT 5% WATER 245 ML IV SCH (08:00)
[2017-06-11] MEDS: ENOXAPARIN 60MG/0.6ML SYR SUBCUT SCH ×2 (08:02→21:08)
[2017-06-11] MEDS: PANTOPRAZOLE SODIUM 40 MG/VIAL IV SCH (08:03)
[2017-06-11] MEDS: DOCUSATE SODIUM 100MG CAPSULE PO PRN ×2 (08:03→16:30)
[2017-06-11] MEDS: MEROPENEM 1,000 MG in SODIUM CHLORIDE 0.9% 100 ML IV SCH ×3 (08:03→23:49)
[2017-06-11] MEDS: ACETYLCYSTEINE 100MG/ML 10% VIAL 4ML INH SCH ×2 (08:36→12:32)
[2017-06-11] MEDS: DOCUSATE SODIUM SUGAR FREE 100MG/10ML UDC NG SCH ×2 (08:40→16:30)
[2017-06-11 09:36] LABS: PLATELET ESTIMATE NORMAL
[2017-06-11] MEDS: ACETAMINOPHEN 325MG TABLET PO PRN (14:22)
[2017-06-11 14:48] LABS: BG BASE EXCESS 0.3 mmol/L (-2.0-2.0); BG CARBOXYHEMOGLOBIN 0.3 % (0.5-1.5); BG DEOXYHEMOGLOBIN 3.7 % (0.0-5.0); BG FRACTION INSPIRED OXYGEN 50; BG HCO3 ACT 24.1 mmol/L (22.0-26.0); BG METHEMOGLOBIN 0.3 % (0.0-1.5); BG OXYGEN SATURATION 96.3 % (92.0-98.5); BG OXYHEMOGLOBIN 95.7 % (94.0-97.0); BG PCO2 35.4 mmHg (35.0-45.0); BG PO2 83.5 mmHg (75.0-100.0); BG PRESSURE SUPPORT 8; BG SAMPLE SITE RIGHT RADIAL; BG TIDAL VOLUME(mL) 450 mL; BG TOTAL HEMOGLOBIN 9.7 g/dL (12.0-18.0); BG VENT MODE VENT - SIMV; BG VENT RATE 8 set
[2017-06-11] MEDS: PROPOFOL 10MG/ML 100ML 100 ML IV PRN (19:42)
[2017-06-12] VITALS (42 sets, daily range): BP systolic 93–154; BP diastolic 25–110
[2017-06-12] MEDS: INSULIN LISPRO 100 UNITS/ML SUBCUT SCH ×5 (00:08→23:03)
[2017-06-12] MEDS: IPRATROPIUM/ALBUTEROL 0.5-3(2.5)MG/3ML NEB HHN SCH ×6 (00:12→20:05)
[2017-06-12] MEDS: METOCLOPRAMIDE HCL 10MG/2ML VIAL IV SCH ×6 (00:15→23:02)
[2017-06-12] MEDS: DEXT 5%/0.45% NACL 1000ML 1,000 ML IV SCH ×3 (01:00→21:22)
[2017-06-12 05:42] LABS: HEMATOCRIT. 24.4 % (36.0-48.0); HEMOGLOBIN. 8.2 g/dL (12.0-16.0); MEAN CORPUSCULAR VOLUME 92.4 fL (81.0-99.0); MEAN PLATELET VOLUME 10.6 fl (7.4-10.4); PLATELET 171 x1000/uL (130-400); RED BLOOD CELL COUNT 2.64 mill/uL (4.2-5.4); RED CELL DISTRIBUTION WIDTH 14.9 % (11.6-14.6)
[2017-06-12] MEDS: BLOOD SUGAR DIAGNOSTIC STRIP TEST SCH ×4 (05:43→22:58)
[2017-06-12 06:33] LABS: CHLORIDE 110 mEq/L (98-107)
[2017-06-12 06:52] LABS: PLATELET ESTIMATE NORMAL
[2017-06-12 07:05] LABS: CARBON DIOXIDE 25 mEq/L (21-32)
[2017-06-12 07:58] LABS: BG BASE EXCESS 1.3 mmol/L (-2.0-2.0); BG CARBOXYHEMOGLOBIN 0.3 % (0.5-1.5); BG DEOXYHEMOGLOBIN 1.9 % (0.0-5.0); BG FRACTION INSPIRED OXYGEN 50; BG HCO3 ACT 25.2 mmol/L (22.0-26.0); BG METHEMOGLOBIN 0.1 % (0.0-1.5); BG OXYGEN SATURATION 98.1 % (92.0-98.5); BG OXYHEMOGLOBIN 97.7 % (94.0-97.0); BG PCO2 37.2 mmHg (35.0-45.0); BG PH 7.448 (7.350-7.450); BG PO2 120.5 mmHg (75.0-100.0); BG PRESSURE SUPPORT 8; BG SAMPLE SITE RIGHT RADIAL; BG TIDAL VOLUME(mL) 450 mL; BG TOTAL HEMOGLOBIN 11.5 g/dL (12.0-18.0); BG VENT MODE VENT - SIMV; BG VENT RATE 8 set
[2017-06-12] MEDS ORDERED: POTASSIUM CHLORIDE 20MEQ TABLET SR PO NR ×2 (08:15→08:45)
[2017-06-12] MEDS ORDERED: POTASSIUM CHLORIDE 20MEQ/PACKET GT NR (08:45)
[2017-06-12] MEDS: PANTOPRAZOLE SODIUM 40 MG/VIAL IV SCH (08:54)
[2017-06-12] MEDS: MEROPENEM 1,000 MG in SODIUM CHLORIDE 0.9% 100 ML IV SCH ×3 (08:55→23:03)
[2017-06-12] MEDS: DOCUSATE SODIUM 100MG CAPSULE PO PRN (08:55)
[2017-06-12] MEDS: ENOXAPARIN 60MG/0.6ML SYR SUBCUT SCH ×2 (08:55→21:21)
[2017-06-12] MEDS: DOCUSATE SODIUM SUGAR FREE 100MG/10ML UDC NG SCH ×3 (08:57→16:59)
[2017-06-12] MEDS: PROPOFOL 10MG/ML 100ML 100 ML IV PRN (11:40)
[2017-06-12] MEDS ORDERED: PROPOFOL 10MG/ML 100ML 100 ML IV PRN (18:00)
[2017-06-13] VITALS (50 sets, daily range): BP systolic 97–166; BP diastolic 39–102
[2017-06-13] MEDS: IPRATROPIUM/ALBUTEROL 0.5-3(2.5)MG/3ML NEB HHN SCH ×6 (00:14→20:23)
[2017-06-13] MEDS: BLOOD SUGAR DIAGNOSTIC STRIP TEST SCH ×4 (05:12→23:25)
[2017-06-13] MEDS: METOCLOPRAMIDE HCL 10MG/2ML VIAL IV SCH ×4 (05:16→23:25)
[2017-06-13] MEDS: INSULIN LISPRO 100 UNITS/ML SUBCUT SCH ×4 (05:17→23:25)
[2017-06-13 05:27] LABS: HEMATOCRIT. 26.5 % (36.0-48.0); HEMOGLOBIN. 8.7 g/dL (12.0-16.0); MEAN CORPUSCULAR HEMOGLOBIN 30.6 pg (28.0-32.0); MEAN PLATELET VOLUME 9.9 fl (7.4-10.4); PLATELET 218 x1000/uL (130-400); RED BLOOD CELL COUNT 2.84 mill/uL (4.2-5.4)
[2017-06-13 06:04] LABS: CARBON DIOXIDE 27 mEq/L (21-32); CHLORIDE 110 mEq/L (98-107); PHOSPHORUS 2.2 mg/dL (2.5-4.9)
[2017-06-13] MEDS: MEROPENEM 1,000 MG in SODIUM CHLORIDE 0.9% 100 ML IV SCH ×3 (07:44→23:24)
[2017-06-13] MEDS: ENOXAPARIN 60MG/0.6ML SYR SUBCUT SCH ×2 (08:06→20:55)
[2017-06-13] MEDS: PANTOPRAZOLE SODIUM 40 MG/VIAL IV SCH (08:06)
[2017-06-13] MEDS: DOCUSATE SODIUM 100MG CAPSULE PO PRN (08:06)
[2017-06-13] MEDS: DOCUSATE SODIUM SUGAR FREE 100MG/10ML UDC NG SCH ×2 (08:07→16:03)
[2017-06-13 08:55] LABS: BG BASE EXCESS 2.6 mmol/L (-2.0-2.0); BG CARBOXYHEMOGLOBIN 0.3 % (0.5-1.5); BG DEOXYHEMOGLOBIN 2.9 % (0.0-5.0); BG FRACTION INSPIRED OXYGEN 40; BG HCO3 ACT 25.8 mmol/L (22.0-26.0); BG METHEMOGLOBIN 0.3 % (0.0-1.5); BG OXYGEN SATURATION 97.1 % (92.0-98.5); BG OXYHEMOGLOBIN 96.5 % (94.0-97.0); BG PCO2 34.5 mmHg (35.0-45.0); BG PH 7.491 (7.350-7.450); BG PO2 93.9 mmHg (75.0-100.0); BG PRESSURE SUPPORT 8; BG SAMPLE SITE RIGHT RADIAL; BG TOTAL HEMOGLOBIN 10.7 g/dL (12.0-18.0); BG VENT MODE VENT - CPAP
[2017-06-13] MEDS ORDERED: POTASSIUM PHOS,M-BASIC-D-BASIC 10 MMOL in DEXT 5% WATER 246.6667 ML IV NR (09:00)
[2017-06-13] MEDS: ACETAMINOPHEN 325MG TABLET PO PRN (12:04)
[2017-06-13 12:12] LABS: NUCLEATED RED BLOOD CELLS 1 /100 WBC
[2017-06-13 12:14] LABS: PLATELET ESTIMATE NORMAL
[2017-06-14] VITALS (42 sets, daily range): BP systolic 114–177; BP diastolic 51–93
[2017-06-14] MEDS: IPRATROPIUM/ALBUTEROL 0.5-3(2.5)MG/3ML NEB HHN SCH ×7 (00:15→23:57)
[2017-06-14] MEDS: INSULIN LISPRO 100 UNITS/ML SUBCUT SCH ×3 (05:39→17:54)
[2017-06-14] MEDS: METOCLOPRAMIDE HCL 10MG/2ML VIAL IV SCH ×3 (05:41→17:51)
[2017-06-14] MEDS: BLOOD SUGAR DIAGNOSTIC STRIP TEST SCH ×3 (05:41→17:55)
[2017-06-14 05:43] LABS: HEMATOCRIT. 27.9 % (36.0-48.0); HEMOGLOBIN. 9.3 g/dL (12.0-16.0); MEAN CORPUSCULAR HEMOGLOBIN 30.6 pg (28.0-32.0); MEAN PLATELET VOLUME 9.3 fl (7.4-10.4); PLATELET 279 x1000/uL (130-400); RED BLOOD CELL COUNT 3.04 mill/uL (4.2-5.4); RED CELL DISTRIBUTION WIDTH 14.9 % (11.6-14.6)
[2017-06-14 07:00] LABS: CARBON DIOXIDE 28 mEq/L (21-32); CHLORIDE 105 mEq/L (98-107); PHOSPHORUS 2.9 mg/dL (2.5-4.9)
[2017-06-14 07:30] LABS: PLATELET ESTIMATE NORMAL
[2017-06-14] MEDS: PANTOPRAZOLE SODIUM 40 MG/VIAL IV SCH (09:59)
[2017-06-14] MEDS: ENOXAPARIN 60MG/0.6ML SYR SUBCUT SCH ×2 (09:59→21:32)
[2017-06-14] MEDS: MEROPENEM 1,000 MG in SODIUM CHLORIDE 0.9% 100 ML IV SCH ×2 (09:59→15:52)
[2017-06-14] MEDS: DOCUSATE SODIUM SUGAR FREE 100MG/10ML UDC NG SCH ×2 (09:59→17:51)
[2017-06-15] VITALS (34 sets, daily range): BP systolic 83–146; BP diastolic 33–102
[2017-06-15] MEDS: METOCLOPRAMIDE HCL 10MG/2ML VIAL IV SCH ×4 (00:34→17:21)
[2017-06-15] MEDS: BLOOD SUGAR DIAGNOSTIC STRIP TEST SCH ×4 (00:35→18:04)
[2017-06-15] MEDS: INSULIN LISPRO 100 UNITS/ML SUBCUT SCH ×4 (00:35→18:00)
[2017-06-15] MEDS: MEROPENEM 1,000 MG in SODIUM CHLORIDE 0.9% 100 ML IV SCH ×3 (00:59→16:16)
[2017-06-15] MEDS: IPRATROPIUM/ALBUTEROL 0.5-3(2.5)MG/3ML NEB HHN SCH ×6 (04:15→20:49)
[2017-06-15 04:56] LABS: HEMATOCRIT. 29.4 % (36.0-48.0); HEMOGLOBIN. 9.7 g/dL (12.0-16.0); MEAN CORPUSCULAR HEMOGLOBIN 30.6 pg (28.0-32.0); MEAN CORPUSCULAR VOLUME 92.9 fL (81.0-99.0); MEAN PLATELET VOLUME 9.6 fl (7.4-10.4); PLATELET 282 x1000/uL (130-400); RED BLOOD CELL COUNT 3.17 mill/uL (4.2-5.4); RED CELL DISTRIBUTION WIDTH 14.7 % (11.6-14.6)
[2017-06-15 05:10] LABS: CARBON DIOXIDE 30 mEq/L (21-32); CHLORIDE 103 mEq/L (98-107)
[2017-06-15 07:10] LABS: PLATELET ESTIMATE NORMAL
[2017-06-15] MEDS: PANTOPRAZOLE SODIUM 40 MG/VIAL IV SCH (08:37)
[2017-06-15] MEDS: DOCUSATE SODIUM SUGAR FREE 100MG/10ML UDC NG SCH ×2 (08:38→16:32)
[2017-06-15] MEDS: ENOXAPARIN 60MG/0.6ML SYR SUBCUT SCH ×2 (08:39→20:28)
[2017-06-16] VITALS (21 sets, daily range): BP systolic 96–145; BP diastolic 57–83
[2017-06-16] MEDS: BLOOD SUGAR DIAGNOSTIC STRIP TEST SCH ×4 (00:05→17:27)
[2017-06-16] MEDS: MEROPENEM 1,000 MG in SODIUM CHLORIDE 0.9% 100 ML IV SCH ×3 (00:06→16:37)
[2017-06-16] MEDS: METOCLOPRAMIDE HCL 10MG/2ML VIAL IV SCH ×4 (00:06→17:15)
[2017-06-16] MEDS: IPRATROPIUM/ALBUTEROL 0.5-3(2.5)MG/3ML NEB HHN SCH ×6 (00:26→20:38)
[2017-06-16] MEDS: INSULIN LISPRO 100 UNITS/ML SUBCUT SCH ×4 (05:23→17:27)
[2017-06-16] MEDS ORDERED: DOCUSATE SODIUM SUGAR FREE 100MG/10ML UDC NG PRN (06:00)
[2017-06-16 06:09] LABS: BASOPHILS % 0.4 % (0.0-2.0); EOSINOPHILS % 0.7 % (0.0-5.0); HEMATOCRIT. 29.7 % (36.0-48.0); HEMOGLOBIN. 9.8 g/dL (12.0-16.0); LYMPHOCYTES % 10.6 % (20.0-50.0); MEAN CORPUSCULAR HEMOGLOBIN 30.8 pg (28.0-32.0); MEAN PLATELET VOLUME 8.8 fl (7.4-10.4); MONOCYTES % 4.7 % (2.0-8.0); NEUTROPHILS % 83.6 % (40.0-76.0); PLATELET 345 x1000/uL (130-400); RED BLOOD CELL COUNT 3.19 mill/uL (4.2-5.4); RED CELL DISTRIBUTION WIDTH 15.1 % (11.6-14.6)
[2017-06-16 06:26] LABS: CARBON DIOXIDE 31 mEq/L (21-32); CHLORIDE 105 mEq/L (98-107)
[2017-06-16] MEDS: PANTOPRAZOLE SODIUM 40 MG/VIAL IV SCH (08:17)
[2017-06-16] MEDS: DOCUSATE SODIUM SUGAR FREE 100MG/10ML UDC NG SCH ×2 (08:17→16:38)
[2017-06-16] MEDS: ENOXAPARIN 60MG/0.6ML SYR SUBCUT SCH ×2 (08:18→22:23)
[2017-06-17] VITALS (19 sets, daily range): BP systolic 110–153; BP diastolic 57–79
[2017-06-17] MEDS: IPRATROPIUM/ALBUTEROL 0.5-3(2.5)MG/3ML NEB HHN SCH ×5 (00:28→17:26)
[2017-06-17] MEDS: METOCLOPRAMIDE HCL 10MG/2ML VIAL IV SCH ×4 (00:47→17:48)
[2017-06-17] MEDS: BLOOD SUGAR DIAGNOSTIC STRIP TEST SCH ×3 (00:49→12:00)
[2017-06-17] MEDS: ACETAMINOPHEN 325MG TABLET PO PRN (01:06)
[2017-06-17] MEDS: INSULIN LISPRO 100 UNITS/ML SUBCUT SCH ×4 (01:12→17:36)
[2017-06-17 06:15] LABS: BASOPHILS % 0.4 % (0.0-2.0); EOSINOPHILS % 0.6 % (0.0-5.0); HEMATOCRIT. 27.3 % (36.0-48.0); LYMPHOCYTES % 13.9 % (20.0-50.0); MEAN CORPUSCULAR HEMOGLOBIN 30.7 pg (28.0-32.0); MEAN CORPUSCULAR VOLUME 92.5 fL (81.0-99.0); MEAN PLATELET VOLUME 8.8 fl (7.4-10.4); MONOCYTES % 5.1 % (2.0-8.0); PLATELET 347 x1000/uL (130-400); RED BLOOD CELL COUNT 2.95 mill/uL (4.2-5.4); RED CELL DISTRIBUTION WIDTH 14.9 % (11.6-14.6)
[2017-06-17 06:22] LABS: CARBON DIOXIDE 27 mEq/L (21-32); CHLORIDE 108 mEq/L (98-107)
[2017-06-17 06:35] LABS: TROPONIN I < 0.02 ng/mL (0.00-0.04)
[2017-06-17] MEDS: ENOXAPARIN 60MG/0.6ML SYR SUBCUT SCH (08:50)
[2017-06-17] MEDS: PANTOPRAZOLE SODIUM 40 MG/VIAL IV SCH (08:51)
[2017-06-17] MEDS: DOCUSATE SODIUM SUGAR FREE 100MG/10ML UDC NG SCH ×2 (08:58→17:00)
[2017-06-17] MEDS ORDERED: LEVOTHYROXINE SODIUM 75MCG TABLET PO SCH (13:30)
[2017-06-17] MEDS ORDERED: LAMOTRIGINE 100MG TABLET PO SCH (17:00)
[2017-06-18] MEDS ORDERED: DULOXETINE HCL 60MG DR CAPSULE PO SCH (09:00)
== END 2017-06-17 19:38 | DRG 870 ==
LOC: ER 22:57 → 5EST 23:51 → EDBEDREQSVC 06-06 00:18 → EDBEDREQ 06-06 00:18 → ENRESERV 06-06 00:36 → MICUNO 06-06 09:38 → 3WST 06-16 03:44
PROVIDERS: ADMIT Family Medicine Adult Medicine; ATTEND Family Medicine Adult Medicine
PROC: 5A1955Z Respiratory Ventilation, Greater than 96 Consecutive Hours (ICD-10-PCS; principal; 2017-06-05)
PROC: 0BH17EZ Insertion of Endotracheal Airway into Trachea, Via Natural or Artificial Opening (ICD-10-PCS; 2017-06-05)
PROC: 02HV33Z Insertion of Infusion Device into Superior Vena Cava, Percutaneous Approach (ICD-10-PCS; 2017-06-06)
PROC: B548ZZA Ultrasonography of Superior Vena Cava, Guidance (ICD-10-PCS; 2017-06-06)
DX: A41.9 Sepsis, unspecified organism (principal); J96.01 Acute respiratory failure with hypoxia; J69.0 Pneumonitis due to inhalation of food and vomit; R65.21 Severe sepsis with septic shock; E43 Unspecified severe protein-calorie malnutrition; G92 Toxic encephalopathy; I47.2 Ventricular tachycardia; Z93.0 Tracheostomy status; E87.0 Hyperosmolality and hypernatremia; I82.402 Acute embolism and thrombosis of unspecified deep veins of left lower extremity; N39.0 Urinary tract infection, site not specified; I69.354 Hemiplegia and hemiparesis following cerebral infarction affecting left non-dominant side; F03.90 Unspecified dementia, unspecified severity, without behavioral disturbance, psychotic disturbance, mood disturbance, and anxiety; I11.9 Hypertensive heart disease without heart failure; E86.0 Dehydration; M48.02 Spinal stenosis, cervical region; E11.9 Type 2 diabetes mellitus without complications; E03.9 Hypothyroidism, unspecified; E78.5 Hyperlipidemia, unspecified; E07.9 Disorder of thyroid, unspecified; E83.39 Other disorders of phosphorus metabolism; E87.6 Hypokalemia; G40.909 Epilepsy, unspecified, not intractable, without status epilepticus; I45.6 Pre-excitation syndrome; K59.00 Constipation, unspecified; Z86.79 Personal history of other diseases of the circulatory system; Z86.711 Personal history of pulmonary embolism; Z91.81 History of falling; Z68.23 Body mass index [BMI] 23.0-23.9, adult
CPT/HCPCS: 31500; 36415; 36569; 36600; 70450; 71010; 71250; 74000; 74177; 76937; 78580; 80048; 80053; 80202; 81001; 82105; 82140; 82375; 82378; 82550; 82570; 82805; 82962; 83605; 83735; 83880; 84100; 84145; 84156; 84443; 84478; 84484; 85025; 85610; 87040; 87070; 87086; 87106; 87493; 93005; 93306; 93923; 93970; 94002; 94003; 94640; 96365; 97163; 99291; A4216; A6261; C1725; C9113; J0692; J1650; J1815; J1956; J2185; J2405; J2543; J2704; J2765; J3370; J3480; J3490; J7030; J7040; J7050; J7060; J7070; J7608; J7620; Q9967; A4315

== ENCOUNTER → 2018-04-07 | Outpatient (CLI) | payer MEDICARE, OTHER | END | disposition home or self-care (01) | LOC: CARD 09:02 | PROVIDERS: ATTEND Psychiatry & Neurology Neurology | DX: G40.309 Generalized idiopathic epilepsy and epileptic syndromes, not intractable, without status epilepticus (principal); E03.9 Hypothyroidism, unspecified; E11.9 Type 2 diabetes mellitus without complications; I11.0 Hypertensive heart disease with heart failure; I50.9 Heart failure, unspecified ==

== ENCOUNTER 2019-10-28 12:36 | Emergency (ER) | payer MEDICARE, MEDICAID, OTHER ==
[~2019-10-28] VITALS: Ht 162.6 cm; Wt 68.0 kg
[~2019-10-28 12:36] MED LIST changes: -LAMO25TA4 PO; +LAMO25TA9 PO
[2019-10-28] MEDS ORDERED: LEVETIRACETAM 1000MG/100ML 100 ML IV ONE (13:00)
[2019-10-28] MEDS ORDERED: SODIUM CHLORIDE 0.9% 500 ML IV ONE (13:00)
[2019-10-28 13:32] LABS: BASOPHILS % 1.4 % (0.0-2.0); EOSINOPHILS % 2.4 % (0.0-5.0); HEMATOCRIT. 34.4 % (36.0-48.0); HEMOGLOBIN. 11.6 g/dL (12.0-16.0); LYMPHOCYTES % 25.6 % (20.0-50.0); MEAN CORPUSCULAR HEMOGLOBIN 31.4 pg (28.0-32.0); MEAN CORPUSCULAR VOLUME 93.5 fL (81.0-99.0); MEAN PLATELET VOLUME 8.8 fl (7.4-10.4); MONOCYTES % 5.5 % (2.0-8.0); NEUTROPHILS % 65.1 % (40.0-76.0); PLATELET 222 x1000/uL (130-400); RED BLOOD CELL COUNT 3.68 mill/uL (4.2-5.4); RED CELL DISTRIBUTION WIDTH 14.2 % (11.6-14.6)
[2019-10-28 13:37] LABS: CHLORIDE 108 mEq/L (98-107)
[2019-10-28 13:42] LABS: ETHANOL BLOOD < 10 mg/dL
[2019-10-28 13:57] LABS: CARBAMAZEPINE < 0.5 ug/mL (4-12)
[2019-10-28 14:07] LABS: CLARITY URINE CLOUDY (CLEAR); COLOR URINE YELLOW (YELLOW); KETONES URINE NEGATIVE (NEGATIVE); LEUKOCYTE ESTERASE URINE 3+ (NEGATIVE); NITRITE URINE NEGATIVE (NEGATIVE); OCCULT BLOOD URINE TRACE (NEGATIVE); PH URINE >=9.0 (4.5-8.0); PROTEIN URINE TRACE (NEGATIVE); SPECIFIC GRAVITY URINE 1.009 (1.005-1.030); UROBILINOGEN URINE 0.2 E.U./dL (0.2-1.0)
[2019-10-28 14:23] LABS: *AMPHETAMINES SCREEN URINE NEGATIVE (NEGATIVE); *BARBITURATES SCREEN URINE NEGATIVE (NEGATIVE); *BENZODIAZEPINES SCREEN URINE PRESUMTIVE POSITIVE (NEGATIVE); *COCAINE SCREEN URINE NEGATIVE (NEGATIVE); CANNABINOID URINE SCREEN NEGATIVE (NEGATIVE); METHADONE URINE SCREEN NEGATIVE (NEGATIVE); OPIATES URINE SCREEN NEGATIVE (NEGATIVE); PHENCYCLIDINE URINE SCREEN NEGATIVE (NEGATIVE)
[2019-10-28] MEDS ORDERED: PHENYTOIN SODIUM EXTENDED 100MG CAPSULE PO ONE (14:30)
[2019-10-28] MEDS: CEFTRIAXONE 1 G PREMIX 50 ML IV NR ×2 (14:57→15:03)
[2019-10-28 16:14] VITALS: BP 124/57
== END 2019-10-28 16:56 | disposition home or self-care (01) ==
LOC: ER 12:36
DX: G40.909 Epilepsy, unspecified, not intractable, without status epilepticus (principal); R03.0 Elevated blood-pressure reading, without diagnosis of hypertension; E11.9 Type 2 diabetes mellitus without complications; I69.954 Hemiplegia and hemiparesis following unspecified cerebrovascular disease affecting left non-dominant side
CPT/HCPCS: 36415; 80053; 80156; 80185; 80305; 80320; 81003; 84484; 85025; 87077; 87086; 87186; 93005; 96365; 96367; 99284; J0696; J1953; J7040; G0480

== ENCOUNTER 2021-08-29 10:40 | Emergency (ER) | payer MEDICARE ==
[~2021-08-29] VITALS: Ht 152.4 cm; Wt 71.0 kg
[2021-08-29] MEDS ORDERED: ONDANSETRON 4MG ODT PO ONE (11:15)
[2021-08-29] MEDS ORDERED: TRAMADOL 50MG TABLET PO ONE (11:15)
[2021-08-29 14:24] LABS: CLARITY URINE TURBID (CLEAR); COLOR URINE YELLOW (YELLOW); KETONES URINE NEGATIVE (NEGATIVE); LEUKOCYTE ESTERASE URINE 3+ (NEGATIVE); NITRITE URINE POSITIVE (NEGATIVE); OCCULT BLOOD URINE 1+ (NEGATIVE); PROTEIN URINE 1+ (NEGATIVE); UROBILINOGEN URINE 0.2 E.U./dL (0.2-1.0)
[2021-08-29] MEDS ORDERED: NITR-87 MT (14:32)
[2021-08-29 15:33] VITALS: BP 132/59
== END 2021-08-29 15:36 | disposition home or self-care (01) ==
LOC: ER 10:40
DX: M54.59 Other low back pain (principal); R10.2 Pelvic and perineal pain; M79.18 Myalgia, other site; G89.11 Acute pain due to trauma; Z91.81 History of falling; N39.0 Urinary tract infection, site not specified
CPT/HCPCS: 74176; 81003; 87086; 99284; Q0162

== ENCOUNTER 2022-06-24 18:42 | Inpatient (IN) | payer OTHER ==
[~2022-06-24] VITALS: Ht 170.2 cm; Wt 71.3 kg
[~2022-06-24 18:42] MED LIST changes: -DULO60CA44 PO; +DULO60CA45 PO; +NITR-87 MT
[2022-06-24] MEDS ORDERED: SODIUM CHLORIDE 0.9% 1,000 ML IV ONE (19:15)
[2022-06-24 20:09] LABS: BASOPHILS % 0.4 % (0.0-2.0); HEMATOCRIT. 34.2 % (36.0-48.0); HEMOGLOBIN. 11.4 g/dL (12.0-16.0); LYMPHOCYTES % 14.1 % (20.0-50.0); MEAN CORPUSCULAR HEMOGLOBIN 31.2 pg (28.0-32.0); MEAN CORPUSCULAR VOLUME 93.4 fL (81.0-99.0); MEAN PLATELET VOLUME 9.6 fl (7.4-10.4); MONOCYTES % 9.9 % (2.0-8.0); NEUTROPHILS % 75.6 % (40.0-76.0); PLATELET 149 x1000/uL (130-400); RED BLOOD CELL COUNT 3.66 mill/uL (4.2-5.4); RED CELL DISTRIBUTION WIDTH 14.3 % (11.6-14.6)
[2022-06-24 20:18] LABS: CHLORIDE 104 mEq/L (98-107)
[2022-06-24 21:50] LABS: D-DIMER 4.28 mg/L FEU (<0.50); INR 1.1; PROTHROMBIN TIME 11.4 sec (9.6-11.0)
[2022-06-24 23:51] LABS: CLARITY URINE CLOUDY (CLEAR); COLOR URINE YELLOW (YELLOW); KETONES URINE NEGATIVE (NEGATIVE); LEUKOCYTE ESTERASE URINE 3+ (NEGATIVE); NITRITE URINE POSITIVE (NEGATIVE); OCCULT BLOOD URINE TRACE (NEGATIVE); PH URINE 5.5 (4.5-8.0); PROTEIN URINE TRACE (NEGATIVE); SPECIFIC GRAVITY URINE 1.009 (1.005-1.030); UROBILINOGEN URINE 0.2 E.U./dL (0.2-1.0)
[2022-06-25] MEDS ORDERED: CEFTRIAXONE 1 G PREMIX 50 ML IV ONE (01:30)
[2022-06-25] MEDS ORDERED: IOHEXOL-350 100 ML BOTTLE ONE (03:11)
[2022-06-25 04:20] VITALS: BP_SYST 112; BP_SYST 144; BP_DIAS 68; BP_DIAS 74
[2022-06-25] MEDS ORDERED: GABA-532 PO (04:52)
[2022-06-25] MEDS ORDERED: OMEP20CA14 PO (04:52)
[2022-06-25] MEDS ORDERED: FERR-63 PO (04:52)
[2022-06-25 08:00] VITALS: BP 119/60
[2022-06-25] MEDS: DULOXETINE HCL 60MG DR CAPSULE PO SCH (08:27)
[2022-06-25] MEDS: OMEPRAZOLE 20MG CAPSULE EXTENDED RELEASE PO SCH (08:28)
[2022-06-25] MEDS: FERROUS SULFATE 325MG TABLET PO SCH ×2 (08:28→16:55)
[2022-06-25] MEDS: LAMOTRIGINE 25MG TABLET PO SCH ×2 (08:28→16:55)
[2022-06-25] MEDS: LEVOTHYROXINE SODIUM 75MCG TABLET PO SCH (08:28)
[2022-06-25] MEDS: DOCUSATE SODIUM 100MG CAPSULE PO SCH (08:28)
[2022-06-25 12:50] VITALS: BP 109/53
[2022-06-25] MEDS: GABAPENTIN 300MG CAPSULE PO SCH ×2 (13:25→21:25)
[2022-06-25 16:00] VITALS: BP 127/57
[2022-06-25 20:00] VITALS: BP 102/50
[2022-06-26] VITALS: BP 103/54
[2022-06-26] MEDS: CEFTRIAXONE 1,000 MG in DEXTROSE 5% WATER 50 ML IV SCH (02:01)
[2022-06-26 04:00] VITALS: BP 92/53
[2022-06-26] MEDS: LEVOTHYROXINE SODIUM 75MCG TABLET PO SCH (06:24)
[2022-06-26] MEDS: GABAPENTIN 300MG CAPSULE PO SCH ×3 (06:24→21:02)
[2022-06-26 08:00] VITALS: BP 123/57
[2022-06-26] MEDS: FERROUS SULFATE 325MG TABLET PO SCH ×2 (09:58→16:29)
[2022-06-26] MEDS: DULOXETINE HCL 60MG DR CAPSULE PO SCH (09:58)
[2022-06-26] MEDS: OMEPRAZOLE 20MG CAPSULE EXTENDED RELEASE PO SCH (09:58)
[2022-06-26] MEDS: LAMOTRIGINE 25MG TABLET PO SCH ×2 (09:58→16:29)
[2022-06-26] MEDS: DOCUSATE SODIUM 100MG CAPSULE PO SCH (09:58)
[2022-06-26 12:00] VITALS: BP 113/53
[2022-06-26] MEDS: DEXAMETHASONE 6MG TABLET PO SCH (14:44)
[2022-06-26 16:00] VITALS: BP 106/47
[2022-06-26 20:00] VITALS: BP 103/46
[2022-06-27] VITALS: BP 91/49
[2022-06-27] MEDS: CEFTRIAXONE 1,000 MG in DEXTROSE 5% WATER 50 ML IV SCH (01:10)
[2022-06-27 04:00] VITALS: BP 115/57
[2022-06-27] MEDS: GABAPENTIN 300MG CAPSULE PO SCH ×3 (06:37→21:15)
[2022-06-27 08:00] VITALS: BP 102/56
[2022-06-27] MEDS: DOCUSATE SODIUM 100MG CAPSULE PO SCH (09:45)
[2022-06-27] MEDS: LEVOTHYROXINE SODIUM 75MCG TABLET PO SCH (09:45)
[2022-06-27] MEDS: DULOXETINE HCL 60MG DR CAPSULE PO SCH (09:45)
[2022-06-27] MEDS: FERROUS SULFATE 325MG TABLET PO SCH ×2 (09:45→17:12)
[2022-06-27] MEDS: FAMOTIDINE 20MG TABLET PO SCH (09:46)
[2022-06-27] MEDS: DEXAMETHASONE 6MG TABLET PO SCH (09:46)
[2022-06-27] MEDS: LAMOTRIGINE 25MG TABLET PO SCH ×2 (09:46→17:12)
[2022-06-27 12:00] VITALS: BP 111/56
[2022-06-27 16:00] VITALS: BP 108/60
[2022-06-27] MEDS ORDERED: CEFEPIME 1,000 MG in DEXTROSE 5% WATER 50 ML IV SCH (18:00)
[2022-06-27] MEDS ORDERED: NITROFURANTOIN MACROCRYSTAL 25MG CAPSULE PO SCH (18:00)
[2022-06-27 20:00] VITALS: BP 128/56
[2022-06-27] MEDS: CEFEPIME 2,000 MG in DEXT 5% WATER 100 ML IV SCH (21:15)
[2022-06-28] VITALS: BP 117/58
[2022-06-28 04:00] VITALS: BP 124/63
[2022-06-28] MEDS: LEVOTHYROXINE SODIUM 75MCG TABLET PO SCH (05:37)
[2022-06-28] MEDS: GABAPENTIN 300MG CAPSULE PO SCH ×3 (05:37→20:38)
[2022-06-28 08:00] VITALS: BP 133/69
[2022-06-28] MEDS: DOCUSATE SODIUM 100MG CAPSULE PO SCH (08:49)
[2022-06-28] MEDS: DULOXETINE HCL 60MG DR CAPSULE PO SCH (08:49)
[2022-06-28] MEDS: DEXAMETHASONE 6MG TABLET PO SCH (08:49)
[2022-06-28] MEDS: LAMOTRIGINE 25MG TABLET PO SCH ×2 (08:49→17:24)
[2022-06-28] MEDS: FERROUS SULFATE 325MG TABLET PO SCH ×2 (08:49→17:24)
[2022-06-28] MEDS: FAMOTIDINE 20MG TABLET PO SCH (08:49)
[2022-06-28 12:00] VITALS: BP 130/67
[2022-06-28 16:00] VITALS: BP 124/59
[2022-06-28 20:00] VITALS: BP 116/68
[2022-06-28] MEDS: CEFEPIME 2,000 MG in DEXT 5% WATER 100 ML IV SCH (20:00)
[2022-06-29] VITALS (7 sets, daily range): BP systolic 105–133; BP diastolic 39–79
[2022-06-29] MEDS: GABAPENTIN 300MG CAPSULE PO SCH ×3 (06:23→20:32)
[2022-06-29] MEDS: DOCUSATE SODIUM 100MG CAPSULE PO SCH (09:02)
[2022-06-29] MEDS: FERROUS SULFATE 325MG TABLET PO SCH ×2 (09:02→17:31)
[2022-06-29] MEDS: FAMOTIDINE 20MG TABLET PO SCH (09:02)
[2022-06-29] MEDS: DULOXETINE HCL 60MG DR CAPSULE PO SCH (09:02)
[2022-06-29] MEDS: LEVOTHYROXINE SODIUM 75MCG TABLET PO SCH (09:02)
[2022-06-29] MEDS: LAMOTRIGINE 25MG TABLET PO SCH ×2 (09:02→17:34)
[2022-06-29] MEDS: DEXAMETHASONE 6MG TABLET PO SCH (11:13)
[2022-06-29] MEDS: CEFEPIME 2,000 MG in DEXT 5% WATER 100 ML IV SCH (20:32)
[2022-06-30] VITALS (7 sets, daily range): BP systolic 100–128; BP diastolic 43–72
[2022-06-30] MEDS: GABAPENTIN 300MG CAPSULE PO SCH ×3 (05:43→20:47)
[2022-06-30] MEDS: DULOXETINE HCL 60MG DR CAPSULE PO SCH (09:08)
[2022-06-30] MEDS: DOCUSATE SODIUM 100MG CAPSULE PO SCH (09:09)
[2022-06-30] MEDS: LEVOTHYROXINE SODIUM 75MCG TABLET PO SCH (09:09)
[2022-06-30] MEDS: LAMOTRIGINE 25MG TABLET PO SCH ×2 (09:09→18:47)
[2022-06-30] MEDS: FERROUS SULFATE 325MG TABLET PO SCH ×2 (09:09→18:46)
[2022-06-30] MEDS: FAMOTIDINE 20MG TABLET PO SCH (09:09)
[2022-06-30] MEDS: DEXAMETHASONE 6MG TABLET PO SCH (13:18)
[2022-06-30] MEDS: CEFEPIME 2,000 MG in DEXT 5% WATER 100 ML IV SCH (20:46)
[2022-07-01] VITALS: BP 111/63
[2022-07-01 04:00] VITALS: BP 103/61
[2022-07-01] MEDS: GABAPENTIN 300MG CAPSULE PO SCH ×3 (05:48→21:30)
[2022-07-01] MEDS: LEVOTHYROXINE SODIUM 75MCG TABLET PO SCH (05:49)
[2022-07-01 08:00] VITALS: BP 101/46
[2022-07-01] MEDS: FERROUS SULFATE 325MG TABLET PO SCH ×2 (09:53→18:17)
[2022-07-01] MEDS: DOCUSATE SODIUM 100MG CAPSULE PO SCH (09:53)
[2022-07-01] MEDS: DULOXETINE HCL 60MG DR CAPSULE PO SCH (09:53)
[2022-07-01] MEDS: FAMOTIDINE 20MG TABLET PO SCH (09:53)
[2022-07-01] MEDS: DEXAMETHASONE 6MG TABLET PO SCH (09:53)
[2022-07-01] MEDS: LAMOTRIGINE 25MG TABLET PO SCH ×2 (09:55→18:17)
[2022-07-01 12:00] VITALS: BP 102/50
[2022-07-01 16:00] VITALS: BP 119/57
[2022-07-01 20:00] VITALS: BP 129/45
[2022-07-01] MEDS: CEFEPIME 2,000 MG in DEXT 5% WATER 100 ML IV SCH (21:30)
[2022-07-02] VITALS: BP 110/62
[2022-07-02 04:00] VITALS: BP 113/72
[2022-07-02] MEDS: GABAPENTIN 300MG CAPSULE PO SCH ×3 (06:31→21:41)
[2022-07-02] MEDS: LEVOTHYROXINE SODIUM 75MCG TABLET PO SCH (06:44)
[2022-07-02 08:00] VITALS: BP 141/81
[2022-07-02] MEDS: FERROUS SULFATE 325MG TABLET PO SCH ×2 (08:25→18:42)
[2022-07-02] MEDS: DULOXETINE HCL 60MG DR CAPSULE PO SCH (08:25)
[2022-07-02] MEDS: DOCUSATE SODIUM 100MG CAPSULE PO SCH (08:25)
[2022-07-02] MEDS: DEXAMETHASONE 6MG TABLET PO SCH (08:25)
[2022-07-02] MEDS: FAMOTIDINE 20MG TABLET PO SCH (08:25)
[2022-07-02] MEDS: LAMOTRIGINE 25MG TABLET PO SCH ×2 (08:26→18:43)
[2022-07-02 12:00] VITALS: BP 111/42
[2022-07-02 12:06] VITALS: BP 141/81
[2022-07-02 16:00] VITALS: BP 121/42
[2022-07-02] MEDS: CEFEPIME 2,000 MG in DEXT 5% WATER 100 ML IV SCH (21:43)
== END 2022-07-02 23:45 | disposition home or self-care (01) | DRG 871 ==
LOC: ER 18:42 → 7WST 06-25 01:18 → EDBEDREQSVC 06-25 01:29 → EDBEDREQDT 06-25 01:29 → EDBEDREQ 06-25 01:29 → EDBEDREQTM 06-25 01:29 → ENRESERV 06-25 04:02
PROVIDERS: ADMIT Internal Medicine; ATTEND Internal Medicine
DX: A41.89 Other specified sepsis (principal); J12.82 Pneumonia due to coronavirus disease 2019; U07.1 COVID-19; J96.01 Acute respiratory failure with hypoxia; N39.0 Urinary tract infection, site not specified; G93.40 Encephalopathy, unspecified; I69.354 Hemiplegia and hemiparesis following cerebral infarction affecting left non-dominant side; E03.9 Hypothyroidism, unspecified; G40.909 Epilepsy, unspecified, not intractable, without status epilepticus; I48.91 Unspecified atrial fibrillation; E11.9 Type 2 diabetes mellitus without complications; F03.90 Unspecified dementia, unspecified severity, without behavioral disturbance, psychotic disturbance, mood disturbance, and anxiety; D64.9 Anemia, unspecified; B96.1 Klebsiella pneumoniae [K. pneumoniae] as the cause of diseases classified elsewhere; B96.89 Other specified bacterial agents as the cause of diseases classified elsewhere; B96.20 Unspecified Escherichia coli [E. coli] as the cause of diseases classified elsewhere; R29.6 Repeated falls; W18.30XA Fall on same level, unspecified, initial encounter; Y93.89 Activity, other specified; Y92.89 Other specified places as the place of occurrence of the external cause; Y99.8 Other external cause status; Z93.0 Tracheostomy status
CPT/HCPCS: 36415; 71045; 71275; 80053; 81003; 83605; 83880; 84145; 84443; 84484; 85025; 85379; 86850; 86870; 86900; 87077; 87186; 87426; 93005; 97162; 97166; 99285; C1893; C9803; J0692; J0696; J7030; J7060; Q9967; U0003; U0005

== ENCOUNTER 2023-12-26 09:14 | Inpatient (IN) | payer MEDICARE, OTHER ==
[~2023-12-26] VITALS: Ht 160 cm; Wt 68.9 kg
[2023-12-26] VITALS (44 sets, daily range): BP systolic 72–128; BP diastolic 31–111; PULSE 52–186; RESP 13–34; TEMP 94–98.2
[~2023-12-26 09:14] MED LIST changes: +FERR-63 PO; +GABA-532 PO; +OMEP20CA14 PO
[2023-12-26] MEDS: ETOMIDATE 2MG/ML 10ML VIAL IV ONE ×2 (09:44→11:02)
[2023-12-26] MEDS: FENTANYL CITRATE/PF 50MCG/ML 2ML VIAL IV ONE ×2 (09:44→11:02)
[2023-12-26] MEDS ORDERED: DILTIAZEM HCL 125 MG in DEXT 5% WATER 100 ML IV ONE (10:15)
[2023-12-26 10:33] LABS: BASOPHILS % 0.6 % (0.0-2.0); EOSINOPHILS % 0.6 % (0.0-5.0); HEMATOCRIT. 30.5 % (36.0-48.0); HEMOGLOBIN. 10.2 g/dL (12.0-16.0); LYMPHOCYTES % 19.7 % (20.0-50.0); MEAN CORPUSCULAR HEMOGLOBIN 33.2 pg (28.0-32.0); MEAN CORPUSCULAR HGB CONC 33.5 g/dL (31.0-37.0); MEAN CORPUSCULAR VOLUME 99.1 fL (81.0-99.0); MEAN PLATELET VOLUME 9.6 fl (7.4-10.4); MONOCYTES % 6.5 % (2.0-8.0); NEUTROPHILS % 72.6 % (40.0-76.0); PLATELET 219 x1000/uL (130-400); RED BLOOD CELL COUNT 3.08 mill/uL (4.2-5.4); RED CELL DISTRIBUTION WIDTH 17.5 % (11.6-14.6); WHITE BLOOD COUNT 7.9 x1000/uL (4.5-11.0)
[2023-12-26] MEDS: DILTIAZEM HCL 125 MG in DEXT 5% WATER 100 ML IV ONE (11:03)
[2023-12-26 11:05] LABS: ALANINE AMINOTRANSFERASE 76 IU/L (10-49); ALBUMIN 3.7 g/dL (3.2-4.8); ASPARTATE AMINOTRANSFERASE 113 IU/L (<34); CALCIUM 8.5 mg/dL (8.7-10.4); CARBON DIOXIDE 20 mEq/L (21-32); CHLORIDE 108 mEq/L (98-107); CREATININE 0.8 mg/dL (0.6-1.0); GLUCOSE 109 mg/dL (70-105); POTASSIUM 3.6 mEq/L (3.5-5.1); PROTEIN TOTAL 5.9 g/dL (6.0-8.3); SODIUM 142 mEq/L (136-145); UREA NITROGEN BLOOD 19 mg/dL (9-23)
[2023-12-26 11:16] LABS: TROPONIN I HIGH SENSITIVITY 133 ng/L (3.0-34)
[2023-12-26] MEDS: AMIODARONE 150MG/100ML PREMIX 100 ML IV ONE ×3 (11:27→12:30)
[2023-12-26] MEDS: ONDANSETRON HCL 4MG/2ML INJ IV PRN ×2 (13:08→16:35)
[2023-12-26] MEDS: SODIUM CHLORIDE 0.9% 1,000 ML IV SCH ×2 (13:09→13:34)
[2023-12-26] MEDS: AMIODARONE HCL 900 MG in DEXT 5% WATER 482 ML IV PRN (13:24)
[2023-12-26] MEDS ORDERED: ACETAMINOPHEN 325MG TABLET PO PRN ×2 (13:30)
[2023-12-26] MEDS ORDERED: MAGNESIUM/ALUMINUM HYDROXIDE/SIMETHICONE 30ML UDC PO PRN (13:30)
[2023-12-26 14:18] LABS: T4 FREE 0.78 ng/dL (0.89-1.76); THYROID STIMULATING HORMONE 21.77 uIU/mL (0.55-4.78)
[2023-12-26] MEDS: MIDODRINE HCL 5MG TABLET PO SCH (15:00)
[2023-12-26] MEDS: ENOXAPARIN 60MG/0.6ML SYR SUBCUT NR (16:35)
[2023-12-26 18:02] LABS: INR 1.2; PROTHROMBIN TIME 12.7 sec (9.6-11.0)
[2023-12-26 18:22] LABS: TROPONIN I HIGH SENSITIVITY 140 ng/L (3.0-34)
[2023-12-26] MEDS: DIPHENHYDRAMINE 50MG/ML VIAL IV PRN (18:41)
[2023-12-26] MEDS: SODIUM CHLORIDE 0.9% INJ 3ML FLUSH IVF SCH (21:30)
[2023-12-26] MEDS: ENOXAPARIN 60MG/0.6ML SYR SUBCUT SCH (21:49)
[2023-12-26] MEDS ORDERED: DEXTROSE 50% WATER 50ML SYRINGE IV PRN (22:00)
[2023-12-26] MEDS ORDERED: ACETAMINOPHEN 650MG SUPP PR PRN ×2 (22:00)
[2023-12-26] MEDS ORDERED: ENOXAPARIN 40MG/0.4ML SYR SUBCUT SCH (22:00)
[2023-12-26 22:35] LABS: TROPONIN I HIGH SENSITIVITY 146 ng/L (3.0-34)
[2023-12-26] MEDS: LEVOTHYROXINE SODIUM 100 MCG/ VIAL IV NR (23:32)
[2023-12-26] MEDS: MAGNESIUM 4 G PREMIX 100 ML IV NR (23:32)
[2023-12-26] MEDS: DEXT 5%/0.45% NACL 1000ML 1,000 ML IV SCH (23:32)
[2023-12-27] VITALS (46 sets, daily range): BP systolic 90–157; BP diastolic 44–76; PULSE 74–86; RESP 17–29; TEMP 97.2–98.4
[2023-12-27 00:14] LABS: TROPONIN I HIGH SENSITIVITY 150 ng/L (3.0-34)
[2023-12-27 07:16] LABS: BASOPHILS % 0.2 % (0.0-2.0); HEMATOCRIT. 27.9 % (36.0-48.0); HEMOGLOBIN. 9.4 g/dL (12.0-16.0); LYMPHOCYTES % 8.9 % (20.0-50.0); MEAN CORPUSCULAR HEMOGLOBIN 33.3 pg (28.0-32.0); MEAN CORPUSCULAR HGB CONC 33.6 g/dL (31.0-37.0); MEAN CORPUSCULAR VOLUME 99.1 fL (81.0-99.0); MEAN PLATELET VOLUME 9.8 fl (7.4-10.4); MONOCYTES % 4.9 % (2.0-8.0); PLATELET 152 x1000/uL (130-400); RED BLOOD CELL COUNT 2.82 mill/uL (4.2-5.4); RED CELL DISTRIBUTION WIDTH 18.1 % (11.6-14.6); WHITE BLOOD COUNT 20.1 x1000/uL (4.5-11.0)
[2023-12-27 07:39] LABS: CALCIUM 8.2 mg/dL (8.7-10.4); CARBON DIOXIDE 18 mEq/L (21-32); CHLORIDE 107 mEq/L (98-107); CREATININE 1.1 mg/dL (0.6-1.0); GLUCOSE 99 mg/dL (70-105); PHOSPHORUS 4.9 mg/dL (2.5-4.9); SODIUM 142 mEq/L (136-145); UREA NITROGEN BLOOD 28 mg/dL (9-23)
[2023-12-27] MEDS: BLOOD SUGAR DIAGNOSTIC STRIP TEST SCH (07:50)
[2023-12-27] MEDS: INSULIN LISPRO 100 UNITS/ML SUBCUT SCH (08:20)
[2023-12-27 08:22] LABS: TROPONIN I HIGH SENSITIVITY 153 ng/L (3.0-34)
[2023-12-27] MEDS: LEVOTHYROXINE SODIUM 100MCG TABLET PO SCH (09:00)
[2023-12-27] MEDS: LAMOTRIGINE 100MG TABLET PO SCH (09:00)
[2023-12-27] MEDS: PANTOPRAZOLE SODIUM 40 MG/VIAL IV SCH (09:00)
[2023-12-27] MEDS ORDERED: LORAZEPAM 2MG/ML INJ IV NR (11:30)
[2023-12-28] VITALS (11 sets, daily range): BP systolic 115–140; BP diastolic 56–74; PULSE 78–83; RESP 13–25; TEMP 97–98.9
[2023-12-28 07:54] LABS: CALCIUM 8.5 mg/dL (8.7-10.4); CARBON DIOXIDE 22 mEq/L (21-32); CHLORIDE 107 mEq/L (98-107); CREATININE 0.9 mg/dL (0.6-1.0); GLUCOSE 110 mg/dL (70-105); POTASSIUM 4.3 mEq/L (3.5-5.1); SODIUM 141 mEq/L (136-145); UREA NITROGEN BLOOD 24 mg/dL (9-23)
[2023-12-28 08:01] LABS: BASOPHILS % 0.2 % (0.0-2.0); EOSINOPHILS % 0.8 % (0.0-5.0); HEMATOCRIT. 28.2 % (36.0-48.0); HEMOGLOBIN. 9.5 g/dL (12.0-16.0); LYMPHOCYTES % 13.1 % (20.0-50.0); MEAN CORPUSCULAR HEMOGLOBIN 33.3 pg (28.0-32.0); MEAN CORPUSCULAR HGB CONC 33.6 g/dL (31.0-37.0); MEAN CORPUSCULAR VOLUME 99.3 fL (81.0-99.0); MEAN PLATELET VOLUME 9.7 fl (7.4-10.4); MONOCYTES % 5.9 % (2.0-8.0); PLATELET 103 x1000/uL (130-400); RED BLOOD CELL COUNT 2.84 mill/uL (4.2-5.4); RED CELL DISTRIBUTION WIDTH 18.1 % (11.6-14.6)
[2023-12-28 08:10] LABS: DIFFERENTIAL COMMENT 1
[2023-12-28] MEDS: AMIODARONE HCL 200 MG TABLET PO SCH (11:36)
[2023-12-28] MEDS ORDERED: IOHEXOL-350 100 ML BOTTLE ONE (15:18)
[2023-12-28] MEDS: ENOXAPARIN 80MG/0.8ML SYR SUBCUT SCH (22:03)
[2023-12-29] VITALS (10 sets, daily range): BP systolic 94–195; BP diastolic 61–166; PULSE 73–87; RESP 18–34; TEMP 97–97.7
[2023-12-29] MEDS: ONDANSETRON HCL 4MG/2ML INJ IV PRN (00:42)
[2023-12-29 05:28] LABS: BASOPHILS % 0.6 % (0.0-2.0); EOSINOPHILS % 2.6 % (0.0-5.0); HEMATOCRIT. 28.5 % (36.0-48.0); HEMOGLOBIN. 9.4 g/dL (12.0-16.0); LYMPHOCYTES % 16.1 % (20.0-50.0); MEAN CORPUSCULAR HEMOGLOBIN 33.2 pg (28.0-32.0); MEAN CORPUSCULAR VOLUME 100.6 fL (81.0-99.0); MEAN PLATELET VOLUME 9.5 fl (7.4-10.4); MONOCYTES % 8.4 % (2.0-8.0); NEUTROPHILS % 72.3 % (40.0-76.0); PLATELET 70 x1000/uL (130-400); RED BLOOD CELL COUNT 2.84 mill/uL (4.2-5.4); RED CELL DISTRIBUTION WIDTH 18.6 % (11.6-14.6)
[2023-12-29 06:48] LABS: DIFFERENTIAL COMMENT 1
[2023-12-29] MEDS: ASPIRIN 81MG EC TABLET PO NR (12:02)
[2023-12-29] MEDS ORDERED: CLONIDINE 0.1MG TABLET PO PRN (16:00)
[2023-12-30] VITALS (10 sets, daily range): BP systolic 106–139; BP diastolic 65–101; PULSE 69–90; RESP 16–25; TEMP 96.8–98.1; O2SAT 96
[2023-12-30] MEDS: DIPHENHYDRAMINE 50MG/ML VIAL IV PRN (01:51)
[2023-12-30 06:28] LABS: CALCIUM 8.4 mg/dL (8.7-10.4); CARBON DIOXIDE 27 mEq/L (21-32); CHLORIDE 106 mEq/L (98-107); GLUCOSE 99 mg/dL (70-105); POTASSIUM 3.7 mEq/L (3.5-5.1); SODIUM 140 mEq/L (136-145); UREA NITROGEN BLOOD 10 mg/dL (9-23)
[2023-12-30 06:30] LABS: BASOPHILS % 0.9 % (0.0-2.0); EOSINOPHILS % 2.2 % (0.0-5.0); HEMATOCRIT. 27.7 % (36.0-48.0); HEMOGLOBIN. 9.3 g/dL (12.0-16.0); LYMPHOCYTES % 17.2 % (20.0-50.0); MEAN CORPUSCULAR HEMOGLOBIN 33.3 pg (28.0-32.0); MEAN CORPUSCULAR HGB CONC 33.6 g/dL (31.0-37.0); MEAN PLATELET VOLUME 10.3 fl (7.4-10.4); MONOCYTES % 9.5 % (2.0-8.0); NEUTROPHILS % 70.2 % (40.0-76.0); PLATELET 78 x1000/uL (130-400); RED CELL DISTRIBUTION WIDTH 17.7 % (11.6-14.6)
[2023-12-30 06:37] LABS: DIFFERENTIAL COMMENT 1
[2023-12-30 06:49] LABS: CREATININE 0.5 mg/dL (0.6-1.0)
[2023-12-30] MEDS: ASPIRIN 81MG EC TABLET PO SCH (08:39)
[2023-12-30] MEDS ORDERED: LORAZEPAM 0.5MG TABLET PO PRN (09:45)
== END 2023-12-30 21:30 | disposition home health service (06) | DRG 280 ==
LOC: ER 09:23 → MICUSO 10:17 → EDBEDREQTM 10:21 → EDBEDREQ 10:21 → CVICU 15:00 → 5EST 12-27 15:07
PROVIDERS: ADMIT Internal Medicine; ATTEND Internal Medicine
DX: I47.10 Supraventricular tachycardia, unspecified (principal); Q22.5 Ebstein's anomaly; I21.4 Non-ST elevation (NSTEMI) myocardial infarction; I42.9 Cardiomyopathy, unspecified; I50.22 Chronic systolic (congestive) heart failure; D57.1 Sickle-cell disease without crisis; E03.9 Hypothyroidism, unspecified; G40.909 Epilepsy, unspecified, not intractable, without status epilepticus; I48.0 Paroxysmal atrial fibrillation; K52.9 Noninfective gastroenteritis and colitis, unspecified; D69.6 Thrombocytopenia, unspecified; E11.9 Type 2 diabetes mellitus without complications; F03.90 Unspecified dementia, unspecified severity, without behavioral disturbance, psychotic disturbance, mood disturbance, and anxiety; I27.20 Pulmonary hypertension, unspecified; Z79.899 Other long term (current) drug therapy; Z87.01 Personal history of pneumonia (recurrent); Z91.81 History of falling; Z79.82 Long term (current) use of aspirin
CPT/HCPCS: 36415; 71045; 71275; 80048; 80053; 82962; 83036; 83605; 83735; 83880; 84100; 84145; 84439; 84443; 84480; 84484; 85025; 86850; 86870; 86900; 93005; 93306; 93970; 97162; 97166; 99285; C1893; C9113; J0282; J1200; J1650; J1815; J2405; J3010; J3475; J3490; J7030; J7060; Q9967

== ENCOUNTER 2024-01-31 23:51 | Inpatient (IN) | payer MEDICARE, OTHER ==
[~2024-01-31] VITALS: Ht 162.6 cm; Wt 64.0 kg
[2024-02-01 01:21] LABS: BASOPHILS % 0.8 % (0.0-2.0); DIFFERENTIAL COMMENT 0; HEMATOCRIT. 36.5 % (36.0-48.0); HEMOGLOBIN. 12.2 g/dL (12.0-16.0); LYMPHOCYTES % 32.4 % (20.0-50.0); MEAN CORPUSCULAR HEMOGLOBIN 34.3 pg (28.0-32.0); MEAN CORPUSCULAR HGB CONC 33.6 g/dL (31.0-37.0); MEAN CORPUSCULAR VOLUME 102.2 fL (81.0-99.0); MONOCYTES % 4.2 % (2.0-8.0); NEUTROPHILS % 59.6 % (40.0-76.0); PLATELET 160 x1000/uL (130-400); RED BLOOD CELL COUNT 3.57 mill/uL (4.2-5.4); RED CELL DISTRIBUTION WIDTH 16.5 % (11.6-14.6); WHITE BLOOD COUNT 7.8 x1000/uL (4.5-11.0)
[2024-02-01 01:33] LABS: PROTHROMBIN TIME 10.9 sec (9.6-11.0)
[2024-02-01 01:36] LABS: LACTIC ACID 2.8 mmol/L (0.4-2.0)
[2024-02-01 01:37] LABS: ALANINE AMINOTRANSFERASE 11 IU/L (10-49); ALBUMIN 3.9 g/dL (3.2-4.8); ASPARTATE AMINOTRANSFERASE 32 IU/L (<34); BILIRUBIN TOTAL 0.7 mg/dL (0.1-1.0); CALCIUM 9.1 mg/dL (8.7-10.4); CARBON DIOXIDE 21 mEq/L (21-32); CHLORIDE 113 mEq/L (98-107); CREATININE 0.7 mg/dL (0.6-1.0); GLUCOSE 72 mg/dL (70-105); POTASSIUM 4.6 mEq/L (3.5-5.1); PROTEIN TOTAL 7.1 g/dL (6.0-8.3); SODIUM 143 mEq/L (136-145); UREA NITROGEN BLOOD 11 mg/dL (9-23)
[2024-02-01] MEDS: IBUPROFEN 200MG TABLET PO NR (02:45)
[2024-02-01] MEDS: CEFTRIAXONE 1GM/50ML 50 ML IV NR (03:40)
[2024-02-01] MEDS: MORPHINE SULFATE 2 MG/ML CPJ (NOT FOR IM USE) IV ONE (05:43)
[2024-02-01] MEDS: VANCOMYCIN 1G PREMIX 200 ML IV NR (05:46)
[2024-02-01] MEDS ORDERED: ACETAMINOPHEN 325MG TABLET PO PRN ×4 (10:15→14:30)
[2024-02-01] MEDS ORDERED: NALOXONE HCL 0.4MG/ML VIAL IV PRN (10:30)
[2024-02-01 10:51] VITALS: BP 114/65; PULSE 91; RESP 18; TEMP 97.9
[2024-02-01] MEDS: HYDROCODONE/ACETAMINOPHEN 5/325MG TABLET PO PRN (11:43)
[2024-02-01] MEDS ORDERED: MAGNESIUM/ALUMINUM HYDROXIDE/SIMETHICONE 30ML UDC PO PRN (14:30)
[2024-02-01] MEDS ORDERED: VANCOMYCIN 1G PREMIX 200 ML IV SCH (14:30)
[2024-02-01] MEDS ORDERED: CLONIDINE 0.1MG TABLET PO PRN (14:30)
[2024-02-01] MEDS ORDERED: ONDANSETRON HCL 4MG/2ML INJ IV PRN (14:30)
[2024-02-01] MEDS ORDERED: ENOXAPARIN 40MG/0.4ML SYR SUBCUT SCH (14:30)
[2024-02-01] MEDS ORDERED: DEXTROSE 50% WATER 50ML SYRINGE IV PRN (14:30)
[2024-02-01] MEDS: AMIODARONE HCL 200 MG TABLET PO SCH (14:57)
[2024-02-01] MEDS: DIPHENHYDRAMINE 50MG/ML VIAL IV PRN (14:58)
[2024-02-01] MEDS: ERGOCALCIFEROL 50000UNITS CAPSULE PO SCH (14:58)
[2024-02-01] MEDS: DULOXETINE HCL 60MG DR CAPSULE PO SCH (14:58)
[2024-02-01] MEDS: LEVOTHYROXINE SODIUM 100MCG TABLET PO SCH (15:00)
[2024-02-01] MEDS: ENOXAPARIN 30MG/0.3ML SYR SUBCUT SCH (15:00)
[2024-02-01 16:00] VITALS: BP 112/58; PULSE 93; RESP 20; TEMP 97.9
[2024-02-01] MEDS ORDERED: VANCOMYCIN 1.25GM PMX (XELLIA) 250 ML IV NR (16:30)
[2024-02-01] MEDS: BLOOD SUGAR DIAGNOSTIC STRIP TEST SCH (17:28)
[2024-02-01] MEDS: INSULIN LISPRO 100 UNITS/ML SUBCUT SCH (17:29)
[2024-02-01] MEDS: METFORMIN HCL 500MG TABLET PO SCH (17:31)
[2024-02-01 20:00] VITALS: BP 102/60; PULSE 81; RESP 19; TEMP 96.9
[2024-02-01] MEDS: LAMOTRIGINE 25MG TABLET PO SCH (20:39)
[2024-02-01] MEDS ORDERED: ZOLPIDEM TARTRATE 5MG TABLET PO PRN (21:00)
[2024-02-02 04:00] VITALS: BP 123/66; PULSE 75; RESP 18; TEMP 97.3
[2024-02-02] MEDS: VANCOMYCIN 1GM/200ML PMX (BAXTER) IV SCH (04:54)
[2024-02-02] MEDS: SODIUM CHLORIDE 0.9% INJ 3ML FLUSH IVF SCH (06:00)
[2024-02-02 08:00] VITALS: BP 115/58; PULSE 74; RESP 18; TEMP 96.7
[2024-02-02 12:00] VITALS: BP 115/57; PULSE 77; RESP 18; TEMP 96.9
[2024-02-02 16:00] VITALS: BP 109/50; PULSE 83; RESP 19; TEMP 96.4
[2024-02-02 20:00] VITALS: BP 113/85; PULSE 18; RESP 18; TEMP 98
[2024-02-03 08:00] VITALS: BP 111/51; PULSE 73; RESP 19; TEMP 97.2
[2024-02-03 11:01] LABS: CALCIUM 9.1 mg/dL (8.7-10.4); CARBON DIOXIDE 25 mEq/L (21-32); CHLORIDE 103 mEq/L (98-107); CREATININE 0.5 mg/dL (0.6-1.0); GLUCOSE 106 mg/dL (70-105); POTASSIUM 4.7 mEq/L (3.5-5.1); SODIUM 137 mEq/L (136-145); UREA NITROGEN BLOOD 8 mg/dL (9-23)
[2024-02-03 12:00] VITALS: BP 115/48; PULSE 79; RESP 18; TEMP 97.3
[2024-02-03] MEDS ORDERED: IOHEXOL-350 100 ML BOTTLE ONE ×2 (15:47→22:44)
[2024-02-03 16:00] VITALS: BP 119/57; PULSE 70; RESP 19; TEMP 97.2
[2024-02-03 20:00] VITALS: BP 115/45; PULSE 83; RESP 18; TEMP 96.4
[2024-02-04] VITALS: BP 123/58; PULSE 85; RESP 18; TEMP 97.9
[2024-02-04] MEDS: SODIUM CHLORIDE 0.9% 1,000 ML IV SCH ×2 (00:59→16:23)
[2024-02-04 03:28] LABS: HEMATOCRIT 37.6 % (36.0-48.0); HEMOGLOBIN 12.4 g/dL (12.0-16.0); MEAN CORPUSCULAR HEMOGLOBIN 33.8 pg (28.0-32.0); MEAN CORPUSCULAR HGB CONC 32.9 g/dL (31.0-37.0); MEAN CORPUSCULAR VOLUME 102.7 fL (81.0-99.0); PLATELET 157 x1000/uL (130-400); RED BLOOD CELL COUNT 3.66 mill/uL (4.2-5.4); RED CELL DISTRIBUTION WIDTH 16.3 % (11.6-14.6); WHITE BLOOD COUNT 7.6 x1000/uL (4.5-11.0)
[2024-02-04 03:57] LABS: CALCIUM 9.2 mg/dL (8.7-10.4); CARBON DIOXIDE 26 mEq/L (21-32); CHLORIDE 103 mEq/L (98-107); CREATININE 0.6 mg/dL (0.6-1.0); GLUCOSE 90 mg/dL (70-105); POTASSIUM 4.9 mEq/L (3.5-5.1); SODIUM 136 mEq/L (136-145); UREA NITROGEN BLOOD 9 mg/dL (9-23)
[2024-02-04 04:00] VITALS: BP 111/58; PULSE 80; RESP 18; TEMP 97.7
[2024-02-04 08:00] VITALS: BP 117/66; PULSE 82; RESP 18; TEMP 96.9
[2024-02-04] MEDS: ASPIRIN 81MG TABLET PO SCH (09:18)
[2024-02-04 12:00] VITALS: BP 88/67; PULSE 79; RESP 19; TEMP 97.9
[2024-02-04] MEDS ORDERED: HEPARIN 1000 UNITS/ML 10ML ONE (12:24)
[2024-02-04] MEDS ORDERED: IODIXANOL 320MG/ML 100 ML BOTTLE IV ONE ×2 (12:24→13:33)
[2024-02-04] MEDS ORDERED: LIDOCAINE HCL 1% 20ML VIAL (Pyxis) INJ ONE (12:24)
[2024-02-04] MEDS: SODIUM CHLORIDE 0.9% 500 ML IV ONE (12:37)
[2024-02-04] MEDS ORDERED: MIDAZOLAM HCL 2 MG/2 ML VIAL ONE (12:56)
[2024-02-04] MEDS ORDERED: FENTANYL CITRATE/PF 50MCG/ML 2ML VIAL ONE (12:57)
[2024-02-04] MEDS ORDERED: CLOPIDOGREL 75MG TABLET ONE (15:02)
[2024-02-04 16:00] VITALS: BP 107/62; PULSE 86; RESP 19; TEMP 97.6
[2024-02-04 20:00] VITALS: BP 99/42; PULSE 80; RESP 18; TEMP 96.1
[2024-02-05] VITALS: BP 98/53; PULSE 89; RESP 20; TEMP 96.4
[2024-02-05 04:00] VITALS: BP 110/45; PULSE 81; RESP 20; TEMP 97.5
[2024-02-05] MEDS: VANCOMYCIN 750MG/150ML IV SCH (05:19)
[2024-02-05 08:00] VITALS: BP 108/52; PULSE 94; RESP 17; TEMP 98.1
[2024-02-05] MEDS: CLOPIDOGREL 75MG TABLET PO SCH (08:05)
[2024-02-05 12:00] VITALS: BP 108/46; PULSE 78; RESP 18; TEMP 95.9
[2024-02-05 12:30] VITALS: BP 108/52; PULSE 97; TEMP 98.1; O2SAT 99
[2024-02-05 16:00] VITALS: BP 101/53; PULSE 85; RESP 17; TEMP 97.5
== END 2024-02-05 17:40 | disposition home or self-care (01) | DRG 271 ==
LOC: ER 02-01 00:10 → 6EST 02-01 03:05 → EDBEDREQTM 02-01 03:09 → EDBEDREQ 02-01 03:09
PROVIDERS: ADMIT Internal Medicine; ATTEND Internal Medicine
PROC: 04CL3ZZ Extirpation of Matter from Left Femoral Artery, Percutaneous Approach (ICD-10-PCS; principal; 2024-02-04)
PROC: 04CN3ZZ Extirpation of Matter from Left Popliteal Artery, Percutaneous Approach (ICD-10-PCS; 2024-02-04)
PROC: 047L3Z1 Dilation of Left Femoral Artery using Drug-Coated Balloon, Percutaneous Approach (ICD-10-PCS; 2024-02-04)
PROC: 047S3ZZ Dilation of Left Posterior Tibial Artery, Percutaneous Approach (ICD-10-PCS; 2024-02-04)
PROC: 047N3DZ Dilation of Left Popliteal Artery with Intraluminal Device, Percutaneous Approach (ICD-10-PCS; 2024-02-04)
PROC: B41G1ZZ Fluoroscopy of Left Lower Extremity Arteries using Low Osmolar Contrast (ICD-10-PCS; 2024-02-04)
DX: E11.52 Type 2 diabetes mellitus with diabetic peripheral angiopathy with gangrene (principal); E87.20 Acidosis, unspecified; G82.20 Paraplegia, unspecified; I69.354 Hemiplegia and hemiparesis following cerebral infarction affecting left non-dominant side; I50.22 Chronic systolic (congestive) heart failure; I70.262 Atherosclerosis of native arteries of extremities with gangrene, left leg; D57.1 Sickle-cell disease without crisis; L89.629 Pressure ulcer of left heel, unspecified stage; I48.91 Unspecified atrial fibrillation; I72.8 Aneurysm of other specified arteries; I11.0 Hypertensive heart disease with heart failure; E03.9 Hypothyroidism, unspecified; F03.90 Unspecified dementia, unspecified severity, without behavioral disturbance, psychotic disturbance, mood disturbance, and anxiety; G40.909 Epilepsy, unspecified, not intractable, without status epilepticus; Z79.4 Long term (current) use of insulin; Z79.82 Long term (current) use of aspirin; Z79.899 Other long term (current) drug therapy
CPT/HCPCS: 36415; 71045; 73630; 75635; 80048; 80053; 80202; 82962; 83605; 84145; 85025; 85027; 85347; 86850; 86870; 86900; 93005; 93922; 99285; J0696; J1200; J1644; J1650; J1815; J2250; J2270; J3010; J3370; J3490; J7030; Q9967